=== PATIENT | female | born 1950 | race Asian ===

== ENCOUNTER 2018-05-22 15:58 | Inpatient (IN) | payer OTHER ==
[2018-05-22] MEDS ORDERED: DEXTROSE 50% 25 GM / 50ML DISP.SYRIN. IV (16:30)
[2018-05-22 16:31] LABS: POC GLUCOSE 102 mg/dL (70-99)
[2018-05-22 16:41] LABS: HEMATOCRIT 42.6 % (36.0-47.0); HEMOGLOBIN 14.4 g/dL (12.0-15.5); MEAN CORPUSCULAR HEMOGLOBIN 30 pg (25-35); MEAN CORPUSCULAR HGB CONC 34 g/dL (31-37); MEAN CORPUSCULAR VOLUME 87 fL (79-100); PLATELET COUNT 275 x10^3/uL (140-400); RED BLOOD COUNT 4.88 x10^6/uL (3.50-5.40); RED CELL DISTRIBUTION WIDTH 12.5 % (11.5-14.5); WHITE BLOOD COUNT 7.6 x10^3/uL (4.0-11.0)
[2018-05-22 16:54] LABS: MAGNESIUM 1.8 mg/dL (1.8-2.4)
[2018-05-22 16:55] LABS: ANION GAP 5 (6-14); BLOOD UREA NITROGEN 17 mg/dL (7-20); BUN/CREATININE RATIO 24 (6-20); CALCIUM 9.4 mg/dL (8.5-10.1); CARBON DIOXIDE 32 mmol/L (21-32); CHLORIDE 101 mmol/L (98-107); CREATININE 0.7 mg/dL (0.6-1.0); GLUCOSE 107 mg/dL (70-99); POTASSIUM 3.9 mmol/L (3.5-5.1); SODIUM 138 mmol/L (136-145)
[2018-05-22 16:58] LABS: ALBUMIN 4.2 g/dL (3.4-5.0); ALBUMIN/GLOBULIN RATIO 1.2 (1.0-1.7); ALK PHOS 66 U/L (46-116); ALT (SGPT) 23 U/L (14-59); AST (SGOT) 20 U/L (15-37); TOTAL BILIRUBIN 0.2 mg/dL (0.2-1.0); TOTAL PROTEIN 7.8 g/dL (6.4-8.2)
[2018-05-22 17:04] LABS: TROPONINI < 0.017 ng/mL (0.000-0.055)
[2018-05-22] MEDS ORDERED: NITROGLYCERIN SUBLINGUAL 0.4 MG BOTTLE OF 25. SL (17:30)
[2018-05-22] MEDS ORDERED: ACETAMINOPHEN 325 MG TABLET. PO (17:30)
[2018-05-22] MEDS: PANTOPRAZOLE 40 MG TABLET.DR. PO (17:55)
[2018-05-22] MEDS: metFORMIN 500 MG TABLET PO (20:35)
[2018-05-22] MEDS: ATORVASTATIN CALCIUM 20 MG TABLET PO (20:35)
[2018-05-22 20:46] LABS: POC GLUCOSE 115 mg/dL (70-99)
[2018-05-22] MEDS: MAG HYDROX/ALUMINUM HYD/SIMETH 30 ML ORAL.SUSP PO (22:35)
[2018-05-23 01:09] LABS: TROPONINI < 0.017 ng/mL (0.000-0.055)
[2018-05-23 04:46] LABS: CHOLESTEROL 208 mg/dL (0-200); HDLC 44 mg/dL (40-60); LDLC 102 mg/dL (0-100); NON-HDL CHOLESTEROL 164 mg/dL (0-129); TRIGLYCERIDES 310 mg/dL (0-150); VLDLC 62 mg/dL (0-40)
[2018-05-23 04:47] LABS: CHOLESTEROL/HDL RATIO 4.7
[2018-05-23 04:49] LABS: TROPONINI < 0.017 ng/mL (0.000-0.055)
[2018-05-23] MEDS: REGADENOSON 0.4 MG/5 ML DISP.SYRIN. IV (09:05)
[2018-05-23] MEDS: metFORMIN 500 MG TABLET PO ×2 (10:49→10:55)
[2018-05-23] MEDS: MULTIVITAMIN with MINERAL TABLET. PO (10:49)
[2018-05-23] MEDS: PANTOPRAZOLE 40 MG TABLET.DR. PO (10:49)
[2018-05-23] MEDS: CYANOCOBALAMIN (VITAMIN B-12) 1,000 MCG TABLET. PO (10:49)
[2018-05-23] MEDS: ASPIRIN 325 MG TABLET PO (10:49)
[2018-05-23] MEDS: hydroCHLOROthiazide 12.5 MG CAPSULE PO (10:49)
[2018-05-23] MEDS: LINAGLIPTIN 5 MG TABLET PO (10:49)
[2018-05-23] MEDS: LOSARTAN POTASSIUM 50 MG TABLET. PO (10:49)
[2018-05-23] MEDS: ACETAMINOPHEN 325 MG TABLET. PO (10:55)
[2018-05-23 12:03] LABS: POC GLUCOSE 131 mg/dL (70-99)
[2018-05-23 12:03] LABS: POC GLUCOSE 125 mg/dL (70-99)
== END 2018-05-23 13:58 | disposition home or self-care (01) | DRG 392 ==
LOC: 2 SOUTH 15:58
PROVIDERS: Internal Medicine
DX: K21.9 Gastro-esophageal reflux disease without esophagitis (principal); K22.4 Dyskinesia of esophagus; E78.5 Hyperlipidemia, unspecified; E11.9 Type 2 diabetes mellitus without complications; I11.9 Hypertensive heart disease without heart failure; M19.90 Unspecified osteoarthritis, unspecified site; Z88.5 Allergy status to narcotic agent; Z90.49 Acquired absence of other specified parts of digestive tract; Z98.51 Tubal ligation status; Z98.49 Cataract extraction status, unspecified eye; Z79.84 Long term (current) use of oral hypoglycemic drugs; Z79.899 Other long term (current) drug therapy
CPT/HCPCS: 36415; 71045; 78452; 80053; 80061; 82962; 83735; 84484; 85027; 93005; 93017; 93306; 96374; 96375; 96376; A9500; J2785

== ENCOUNTER 2019-03-29 21:59 | Inpatient (IN) | payer BC, MEDICARE, OTHER ==
[~2019-03-29] VITALS: Ht 152.4 cm; Wt 48.2 kg
[~2019-03-29 21:59] MED LIST: CYAN10005 PO; LOSA1TAB19 PO; METF500T16 PO; MULT-245 PO; PRAV80TA2 PO; SITA100T PO
[2019-03-29 22:19] LABS: BASO % 1 % (0-3); EOS # 0.1 x10^3/uL (0.0-0.7); EOS % 1 % (0-3); HEMATOCRIT 41.1 % (36.0-47.0); HEMOGLOBIN 13.9 g/dL (12.0-15.5); LYMPH # 4.1 x10^3/uL (1.0-4.8); LYMPH % 51 % (24-48); MEAN CORPUSCULAR HEMOGLOBIN 29 pg (25-35); MEAN CORPUSCULAR HGB CONC 34 g/dL (31-37); MEAN CORPUSCULAR VOLUME 87 fL (79-100); MONO # 0.6 x10^3/uL (0.0-1.1); MONO % 8 % (0-9); NEUT # 3.3 x10^3uL (1.8-7.7); NEUT % 40 % (31-73); PLATELET COUNT 246 x10^3/uL (140-400); RED BLOOD COUNT 4.72 x10^6/uL (3.50-5.40); RED CELL DISTRIBUTION WIDTH 12.5 % (11.5-14.5); WHITE BLOOD COUNT 8.1 x10^3/uL (4.0-11.0)
[2019-03-29 22:27] LABS: PROTHROMBIN TIME PATIENT 11.6 SEC (11.7-14.0)
[2019-03-29 22:29] LABS: CALCIUM 9.6 mg/dL (8.5-10.1); CREATININE 0.8 mg/dL (0.6-1.0); GFR 70.9; POTASSIUM 3.9 mmol/L (3.5-5.1)
[2019-03-29 22:35] LABS: ALBUMIN 4.4 g/dL (3.4-5.0); ALBUMIN/GLOBULIN RATIO 1.2 (1.0-1.7); TOTAL BILIRUBIN 0.6 mg/dL (0.2-1.0)
--- NOTE | 2019-03-29 22:44 | RAD ---
EXAM: Chest, single view. HISTORY: Chest pain. COMPARISON: None. FINDINGS: A frontal view of the chest is obtained. There is no infiltrate, pleural effusion or pneumothorax. The heart is normal in size. IMPRESSION: No acute pulmonary finding. Electronically signed by: Ebonie Chaney MD (03/29/2019 10:41 PM) [facility]
[2019-03-29] MEDS ORDERED: LIDO:MAALOX 1:1 20 ML SINGLE DOSE. SWSW ONE (23:00)
[2019-03-29] MEDS ORDERED: ASPIRIN CHEWABLE 81 MG TABLET. PO ONE (23:00)
[2019-03-30] VITALS (7 sets, daily range): BP systolic 102–147; BP diastolic 53–82
--- NOTE | 2019-03-30 00:11 | PHYS DOC ---
Past Medical History Past Medical History: GERD, Hypertension Additional Past Surgical Histo: Right arm Alcohol Use: None Drug Use: None Adult General Chief Complaint Chief Complaint: CHEST PAIN HPI HPI Patient is a 68 year old female who presents with chest pain. She describes a sensation of chest pressure and burning is been going on for several days it's worse when she lies flat or is in a certain position in bed. However then tonight she was moving a box she got much more short of breath she felt weak she was having increasing chest pressure that lasted for 30 minutes after moving a box across the room. Currently she feels a little bit better. She had a stress test last year that was negative she saw Dr. Goldberg on Friday. 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 Current Medications Current Medications Current Medications Medications (Trade) Dose Ordered Sig/Stewart Start Time Stop Time Status Last Admin Dose Admin Aspirin (Children'S Aspirin) 324 mg 1X ONCE 03/29/19 23:00 03/29/19 23:01 DC 03/29/19 22:57 324 MG Multi-Ingredient Mouthwash/Gargle (Gi Cocktail) 20 ml 1X ONCE 03/29/19 23:00 03/29/19 23:01 DC 03/29/19 22:59 20 ML Allergies Allergies Allergies Coded Allergies Type Severity Reaction Last Updated Verified codeine Allergy Intermediate 05/22/18 Yes Physical Exam Physical Exam Constitutional: Well developed, well nourished, no acute distress, non-toxic appearance. [] HENT: Normocephalic, atraumatic, bilateral external ears normal, oropharynx moist, no oral exudates, nose normal. [] Eyes: PERRLA, EOMI, conjunctiva normal, no discharge. [] Neck: Normal range of motion, no tenderness, supple, no stridor. [] Cardiovascular:Heart rate regular rhythm, no murmur [] Lungs & Thorax: Bilateral breath sounds clear to auscultation [] Abdomen: Bowel sounds normal, soft, no tenderness, no masses, no pulsatile masses. [] Skin: Warm, dry, no erythema, no rash. [] Back: No tenderness, no CVA tenderness. [] Extremities: No tenderness, no cyanosis, no clubbing, ROM intact, no edema. [] Neurologic: Alert and oriented X 3, normal motor function, normal sensory function, no focal deficits noted. [] Psychologic: Affect normal, judgement normal, mood normal. [] Current Patient Data Vital Signs Vital Signs Date Time Temp Pulse Resp B/P (MAP) Pulse Ox O2 Delivery O2 Flow Rate FiO2 03/29/19 22:44 78 18 136/62 (86) 99 Room Air 03/29/19 22:00 97.6 97.6 Lab Values Laboratory Tests Test 03/29/19 22:00 White Blood Count 8.1 x10^3/uL (4.0-11.0) Red Blood Count 4.72 x10^6/uL (3.50-5.40) Hemoglobin 13.9 g/dL (12.0-15.5) Hematocrit 41.1 % (36.0-47.0) Mean Corpuscular Volume 87 fL (79-100) Mean Corpuscular Hemoglobin 29 pg (25-35) Mean Corpuscular Hemoglobin Concent 34 g/dL (31-37) Red Cell Distribution Width 12.5 % (11.5-14.5) Platelet Count 246 x10^3/uL (140-400) Neutrophils (%) (Auto) 40 % (31-73) Lymphocytes (%) (Auto) 51 % (24-48) H Monocytes (%) (Auto) 8 % (0-9) Eosinophils (%) (Auto) 1 % (0-3) Basophils (%) (Auto) 1 % (0-3) Neutrophils # (Auto) 3.3 x10^3uL (1.8-7.7) Lymphocytes # (Auto) 4.1 x10^3/uL (1.0-4.8) Monocytes # (Auto) 0.6 x10^3/uL (0.0-1.1) Eosinophils # (Auto) 0.1 x10^3/uL (0.0-0.7) Basophils # (Auto) 0.0 x10^3/uL (0.0-0.2) Prothrombin Time 11.6 SEC (11.7-14.0) L Prothrombin Time INR 0.9 (0.8-1.1) D-Dimer (Rosario) < 0.27 ug/mlFEU Sodium Level 132 mmol/L (136-145) L Potassium Level 3.9 mmol/L (3.5-5.1) Chloride Level 93 mmol/L (98-107) L Carbon Dioxide Level 26 mmol/L (21-32) Anion Gap 13 (6-14) Blood Urea Nitrogen 23 mg/dL (7-20) H Creatinine 0.8 mg/dL (0.6-1.0) Estimated GFR (Cockcroft-Gault) 70.9 BUN/Creatinine Ratio 29 (6-20) H Glucose Level 130 mg/dL (70-99) H Calcium Level 9.6 mg/dL (8.5-10.1) Total Bilirubin 0.6 mg/dL (0.2-1.0) Aspartate Amino Transferase (AST) 17 U/L (15-37) Alanine Aminotransferase (ALT) 21 U/L (14-59) Alkaline Phosphatase 57 U/L (46-116) Troponin I Quantitative < 0.017 ng/mL (0.000-0.055) Total Protein 8.0 g/dL (6.4-8.2) Albumin 4.4 g/dL (3.4-5.0) Albumin/Globulin Ratio 1.2 (1.0-1.7) Lipase 225 U/L (73-393) Laboratory Tests 03/29/19 22:00 Laboratory Tests 03/29/19 22:00 EKG EKG []Normal sinus rhythm rate 79 no acute ischemic changes noted interpreted by me the time of encounter 1 PVC was noted. Radiology/Procedures Radiology/Procedures [] Impressions: FINDINGS: A frontal view of the chest is obtained. There is no infiltrate, pleural effusion or pneumothorax. The heart is normal in size. IMPRESSION: No acute pulmonary finding. Electronically signed by: Ebonie Guillermo MD (03/29/2019 10:41 PM) [facility] DICTATED and SIGNED BY: EBONIE GUILLERMO MD DATE: 03/29/192240 Course & Med Decision Making Course & Med Decision Making Pertinent Labs and Imaging studies reviewed. (See chart for details) []68-year-old female with chest pain. Heart score is a H1E0 a 2 are 2T0 = 5. D-dimer was negative and noncontributory PE or dissection based on her timeline. Abdominal examination was benign I discussed with Dr. Goldberg agrees with admission overnight for observation recommends cardiac consultation restart home medications. Patient and family are comfortable with the plan. Dragon Disclaimer Dragon Disclaimer This electronic medical record was generated, in whole or in part, using a voice recognition dictation system. Departure Departure Impression: Primary Impression: Chest pain Disposition: ADMITTED INPATIENT Admitting Physician: Sin Goldberg Condition: STABLE Referrals: SIN GOLDBERG MD (PCP) ESTHER GRACE MD Mar 30, 2019 00:11
[2019-03-30] MEDS ORDERED: PANT20TA2 PO (01:04)
[2019-03-30] MEDS ORDERED: GABA-585 PO (01:04)
--- NOTE | 2019-03-30 05:55 | EKG ---
[facility] [address] [place] [address] Test Date: 2019-03-29 Test Time: 22:05:06 Pat Name: MING RUSH Department: Room: Gender: F Sheep Sorter: : 1950 Requested By: ESTHER GRACE Order Number: [id number] Reading MD: Measurements Intervals [place] Rate: 79 P: 52 [place]: 134 QRS: 6 QRSD: 82 T: 30 QT: 382 QTc: 439 Interpretive Statements SINUS RHYTHM VENTRICULAR PREMATURE COMPLEX(ES) QRS(T) CONTOUR ABNORMALITY CONSIDER ANTEROLATERAL MYOCARDIAL DAMAGE CONSISTENT WITH INFERIOR INFARCT PROBABLY OLD ABNORMAL ECG RI6.01 Unconfirmed report No previous ECG available for comparison
--- NOTE | 2019-03-30 08:43 | PDOC2 ---
NEGIN ROSE [employer] 03/30/19 0843: CARDIAC CONSULT DATE OF CONSULT Date of Consult DATE: 03/30/19 TIME: 08:38 REASON FOR CONSULT Reason for Consult: Chest pain REFERRING PHYSICIAN Referring Physician: Dr. Goldberg SOURCE Source: Chart review, Patient HISTORY OF PRESENT ILLNESS HISTORY OF PRESENT ILLNESS This is a 68 yo female who presented secondary to chest/epigastric pain. Patient reports pain has been intermittent for the last week. Describes as burning sensation. Non-radiating. Occurs after eating. Feels like something is stuck in her esophagus. When she eats. Associated with shortness of breath. Seems to be better in she lays on her side. Also associated with tingling in her bilateral LE. Feels better when her stomach is empty. Saw PCP Friday and was started on PPI. Reports symptoms initially improved, but came back. No recent illness/fevers, dizziness, diaphoresis, palpitations, nausea/vomiting, LE edema, or ESCALANTE. PAST MEDICAL HISTORY Cardiovascular: HTN, Hyperlipidemia GI: GERD Endocrine: Diabetes PAST SURGICAL HISTORY Past Surgical History: Appendectomy, Tubal Ligation FAMILY HISTORY Family History: Cancer (lung ), Diabetes, High Cholestrol, Hypertension SOCIAL HISTORY Smoke: No ALCOHOL: none Drugs: None Lives: with Family CURRENT MEDICATIONS CURRENT MEDICATIONS Current Medications Medications (Trade) Dose Ordered Sig/Stewart Route PRN Reason Start Time Stop Time Status Last Admin Dose Admin Multi-Ingredient Mouthwash/Gargle (Gi Cocktail) 20 ml 1X ONCE SWSW 03/29/19 23:00 03/29/19 23:01 DC 03/29/19 22:59 Aspirin (Children'S Aspirin) 324 mg 1X ONCE PO 03/29/19 23:00 03/29/19 23:01 DC 03/29/19 22:57 ALLERGIES ALLERGIES: Coded Allergies: codeine (Verified Allergy, Intermediate, 05/22/18) liraglutide (Verified Allergy, Unknown, Nausea, 03/30/19) ROS Review of System 14 point ROS conducted with pertinent positives noted above in HPI. PHYSICAL EXAM General: Alert, Oriented X3, Cooperative, No acute distress HEENT: Atraumatic, Mucous membr. moist/pink Lungs: Clear to auscultation, Normal air movement Heart: Regular rate, Normal S1, Normal S2, No murmurs Abdomen: Soft, Other (mild epigastric tenderness ) Extremities: No edema, Normal pulses Skin: No significant lesion Neuro: Strength at 5/5 X4 ext, Sensation intact Psych/Mental Status: Mental status NL, Mood NL MUSCULOSKELETAL: No deformity VITALS VITALS Vital Signs Date Time Temp Pulse Resp B/P (MAP) Pulse Ox O2 Delivery O2 Flow Rate FiO2 03/30/19 07:40 98.1 72 16 102/65 (77) 97 Room Air 98.1 LABS Lab: Laboratory Tests Test 03/29/19 22:00 03/30/19 05:15 White Blood Count 8.1 x10^3/uL (4.0-11.0) Red Blood Count 4.72 x10^6/uL (3.50-5.40) Hemoglobin 13.9 g/dL (12.0-15.5) Hematocrit 41.1 % (36.0-47.0) Mean Corpuscular Volume 87 fL (79-100) Mean Corpuscular Hemoglobin 29 pg (25-35) Mean Corpuscular Hemoglobin Concent 34 g/dL (31-37) Red Cell Distribution Width 12.5 % (11.5-14.5) Platelet Count 246 x10^3/uL (140-400) Neutrophils (%) (Auto) 40 % (31-73) Lymphocytes (%) (Auto) 51 % (24-48) Monocytes (%) (Auto) 8 % (0-9) Eosinophils (%) (Auto) 1 % (0-3) Basophils (%) (Auto) 1 % (0-3) Neutrophils # (Auto) 3.3 x10^3uL (1.8-7.7) Lymphocytes # (Auto) 4.1 x10^3/uL (1.0-4.8) Monocytes # (Auto) 0.6 x10^3/uL (0.0-1.1) Eosinophils # (Auto) 0.1 x10^3/uL (0.0-0.7) Basophils # (Auto) 0.0 x10^3/uL (0.0-0.2) Prothrombin Time 11.6 SEC (11.7-14.0) Prothromb Time International Ratio 0.9 (0.8-1.1) D-Dimer (Rosario) < 0.27 ug/mlFEU Sodium Level 132 mmol/L (136-145) Potassium Level 3.9 mmol/L (3.5-5.1) Chloride Level 93 mmol/L (98-107) Carbon Dioxide Level 26 mmol/L (21-32) Anion Gap 13 (6-14) Blood Urea Nitrogen 23 mg/dL (7-20) Creatinine 0.8 mg/dL (0.6-1.0) Estimated GFR (Cockcroft-Gault) 70.9 BUN/Creatinine Ratio 29 (6-20) Glucose Level 130 mg/dL (70-99) Calcium Level 9.6 mg/dL (8.5-10.1) Total Bilirubin 0.6 mg/dL (0.2-1.0) Aspartate Amino Transf (AST/SGOT) 17 U/L (15-37) Alanine Aminotransferase (ALT/SGPT) 21 U/L (14-59) Alkaline Phosphatase 57 U/L (46-116) Troponin I Quantitative < 0.017 ng/mL (0.000-0.055) < 0.017 ng/mL (0.000-0.055) Total Protein 8.0 g/dL (6.4-8.2) Albumin 4.4 g/dL (3.4-5.0) Albumin/Globulin Ratio 1.2 (1.0-1.7) Lipase 225 U/L (73-393) ECHOCARDIOGRAM ECHOCARDIOGRAM <Conclusion> The left ventricle is normal size. The left ventricular systolic function is normal and the ejection fraction is within normal range. Left ventricular ejection fraction is 60-65%. There is mild concentric left ventricular hypertrophy. There is no significant aortic valvular stenosis. Doppler and Color Flow revealed no significant aortic regurgitation. Doppler and Color Flow revealed no mitral valve regurgitation noted. Doppler and Color Flow revealed mild tricuspid regurgitation. There is no evidence of significant pericardial effusion. DATE: 05/23/18 1309 ASSESSMENT/PLAN ASSESSMENT/PLAN 1. Chest/epigastric pain, atypical. AMI ruled out. Suspect GI related 2. Hypertension; controlled 3. Hyperlipidemia 4. GERD; PPI 5. DM, II Recommendations ASA, statin Echo to assess LV systolic function lipid panel D/w Dr. Goldberg. Given risk factors, with proceed with MPI to r/o ischemia. DEEPALI SAUNDERS MD 03/30/19 1146: CARDIAC CONSULT ASSESSMENT/PLAN ASSESSMENT/PLAN Pt. seen and examined. Agree with above RN [facility] note. Multiple risk factors and atypical chest. Echo wnl. Await MPI results. NEGIN ROSE APRN Mar 30, 2019 08:43 DEEPALI SAUNDERS MD Mar 30, 2019 11:46
[2019-03-30] MEDS ORDERED: DEXTROSE 50% 25 GM / 50ML DISP.SYRIN. IV PRN (10:00)
[2019-03-30 10:14] LABS: CHOLESTEROL/HDL RATIO 5.2
--- NOTE | 2019-03-30 10:22 | CARD ---
MR#: [id number] Date of Study: 03/30/2019 Ordering Physician: NEGIN ROSE, Referring Physician: FABRICIO CHUNG Tech: Solange Lincoln RDCS APPROVED REPORT EXAM: Two-dimensional and M-mode echocardiogram with Doppler and color Doppler. Other Information Quality : Good INDICATION Chest Pain 2D DIMENSIONS RVDd2.4 (2.9-3.5cm)Left Atrium(2D)3.0 (1.6-4.0cm) IVSd0.8 (0.7-1.1cm)Aortic Root(2D)2.6 (2.0-3.7cm) LVDd4.3 (3.9-5.9cm)LVOT Diameter2.0 (1.8-2.4cm) PWd1.0 (0.7-1.1cm)LVDs2.6 (2.5-4.0cm) FS (%) 40.7 %SV59.8 ml LVEF(%)60.0 (>50%) Aortic Valve AoV Peak Jose.125.9cm/sAoV VTI26.3cm AO Peak GR.6.3mmHgLVOT Peak Jose.90.9cm/s LVOT VTI 19.12cmAO Mean GR.4mmHg STEVE (VMAX)2.91fv1NQN (VTI)2.32cm2 Mitral Valve MV E Suyjncpt89.6cm/sMV DECEL QNAJ887zr MV A Sohbpgtl62.1cm/sMV PZZ470oa E/A Ratio0.6MVA (PHT)2.20cm2 TDI E/Lateral E'8.6E/Medial E'10.9 Tricuspid Valve TR P. Jhzkralg559wd/sRAP TCESLVFB6qsKh TR Peak Gr.68leIgIRUJ27pzHf Pulmonary Vein S1 Ipcuemcr75.8cm/sD2 Gdpbhjdo09.8cm/s LEFT VENTRICLE The left ventricle is normal size. There is normal left ventricular wall thickness. The left ventricu lar systolic function is normal and the ejection fraction is within normal range. The Ejection Fracti on is 55-60%. There is normal LV segmental wall motion. Transmitral Doppler flow pattern is Grade I-a bnormal relaxation pattern. RIGHT VENTRICLE The right ventricle is normal size. The right ventricular systolic function is normal. ATRIA The left atrium size is normal. The right atrium size is normal. The interatrial septum is intact wit h no evidence for an atrial septal defect or patent foramen ovale as noted on 2-D or Doppler imaging. AORTIC VALVE The aortic valve is sclerotic but opens well. Doppler and Color Flow revealed trace aortic regurgitat ion. There is no significant aortic valvular stenosis. MITRAL VALVE The mitral valve is calcified but opens well. There is no evidence of mitral valve prolapse. There is no mitral valve stenosis. Doppler and Color-flow revealed trace mitral regurgitation. TRICUSPID VALVE The tricuspid valve is normal in structure and function. Doppler and Color Flow revealed trace tricus pid regurgitation. The PA pressure was estimated at 18 mmHg. There is no tricuspid valve stenosis. PULMONIC VALVE The pulmonic valve is not well visualized. Doppler and Color Flow revealed mild pulmonic valvular reg urgitation. There is no pulmonic valvular stenosis. GREAT VESSELS The aortic root is normal in size. The ascending aorta is not well seen. The IVC is normal in size an d collapses >50% with inspiration. PERICARDIAL EFFUSION There is no evidence of significant pericardial effusion. Critical Notification Critical Value: No <Conclusion> The left ventricular systolic function is normal and the ejection fraction is within normal range. T he Ejection Fraction is 55-60%. There is normal LV segmental wall motion. Signed by : Edouard Nichole, Electronically Approved : 03/30/2019 10:21:37
--- NOTE | 2019-03-30 10:38 | PDOC ---
Provider Note Provider Note history and physical dictated # [id number] FABRICIO CHUNG MD Mar 30, 2019 10:38
[2019-03-30] MEDS ORDERED: REGADENOSON 0.4 MG/5 ML DISP.SYRIN. IV ONE (11:15)
--- NOTE | 2019-03-30 11:19 | HP ---
ADMIT DATE: 03/30/2019 LOCATION: She is in room 210. HISTORY OF PRESENT ILLNESS: The patient is a 68-year-old white female with history of diabetes mellitus, hypertension and hyperlipidemia, who actually was seen in the office the other day with some epigastric discomfort and some solid food dysphagia. She was started on a proton pump inhibitor. She apparently yesterday had some tingling in her hands and feet and some solid food dysphagia, epigastric pain, discomfort and fullness and pushed a box when her symptoms worsened and she sought help at the [facility] Emergency Room. She was subsequently admitted to the hospital. Her EKG showed no acute change and her cardiac enzymes were negative x 2 after admission. She is, therefore, admitted for further evaluation of her chest discomfort and fullness as well as some epigastric fullness and discomfort and solid food dysphagia. She denies any nausea, vomiting or black or bloody stools. ALLERGIES AND INTOLERANCES: CODEINE AND LIRAGLUTIDE. MEDICATIONS: Include aspirin 81 mg every day, atorvastatin 20 mg at bedtime, vitamin B12 at 1000 mcg daily, gabapentin 100 mg at bedtime, hydrochlorothiazide 12.5 mg every day, losartan 50 mg every day, metformin 500 mg q.i.d., multivitamin every day and Protonix 40 mg every day. PAST MEDICAL HISTORY: Past history is significant for an appendectomy and tubal ligation. She has a history of diabetes mellitus, hypertension, hyperlipidemia and gastroesophageal reflux disease. SOCIAL HISTORY: She does not drink alcohol nor does she smoke cigarettes. She is . FAMILY HISTORY: Noncontributory. REVIEW OF SYSTEMS: GENERAL: There has been no fever, chills or sweats. CARDIOVASCULAR: She had some of chest discomfort and solid food dysphagia. PULMONARY: No cough or shortness of breath. GASTROINTESTINAL: She had the solid food dysphagia, epigastric pain and fullness. ENDOCRINE: She has diabetes mellitus. SKIN: No rashes. The rest of systems reviewed are negative, except as stated in the history of present illness. PHYSICAL EXAMINATION: VITAL SIGNS: The temperature is 98.1 degrees, apical pulse regular at 72, respiratory rate 16, blood pressure 102/65 and oxygen saturation 97%. HEENT: Eyes, gaze is conjugate. Mouth, tongue is midline. NECK: There is no cervical lymphadenopathy or thyroid enlargement. HEART: Reveals an S1, S2. There is no S3 or murmur. LUNGS: Clear. ABDOMEN: Soft, nontender in the sitting position. EXTREMITIES: Lower extremities without edema. SKIN: No rashes. LABORATORY DATA: Review of her laboratory tests, white count is 8.1, hemoglobin 13.9 and platelet count was 246,000. She had 40 polys and 51 lymphocytes, with an INR of 0.9. D-dimer less than 0.27. Sodium 132, potassium 3.9, chloride 93, total CO2 is 26, the BUN is 23, creatinine 0.8 and blood sugar was 130. Liver function tests were normal. Troponin level negative x 2. Triglycerides 207, cholesterol 232, LDL was 146 and HDL was 45 with a lipase of 225. Fingerstick blood sugar was 138. EKG showed normal sinus rhythm with a left atrial abnormality and no acute change. Chest x-ray was unremarkable. She had an echocardiogram done today, which showed preserved left ventricular ejection fraction was unremarkable. ASSESSMENT: 1. Solid food dysphagia. 2. Epigastric pain and fullness. 3. Some chest discomfort. 4. Diabetes mellitus type 2. 5. Hypertension. 6. Hyperlipidemia. PLAN: The plan at this time is to consult the nutrition associate. I spoke with the nurse practitioner of nutrition associate, who recommended getting a stress test because of her coronary artery disease risk factors including diabetes mellitus, hypertension and hyperlipidemia. I will consult Dr. Peck for GI to evaluate for an EGD and possible esophageal dilatation. We will continue the Protonix. We will get a CAT scan of the abdomen and pelvis for the discomfort as mentioned in the epigastric area also. We will continue the Protonix and other current medications. FABRICIO CHUNG MD DR: SHERIF/katihe JOB#: [id number] / [id number]
[2019-03-30] MEDS: metFORMIN 500 MG TABLET PO SCH ×3 (11:30→20:29)
--- NOTE | 2019-03-30 12:17 | NUR ---
SS following for discharge planning. SS reviewed pt chart. Pt is from home with spouse and is currently on room air. No discharge needs noted at this time. SS will continue to follow for discharge planning.
--- NOTE | 2019-03-30 12:27 | PDOC2 ---
GI CONSULT Reason For Consult: EGD eval, solid food dysphagia HPI: HPI: 68 y/o female who saw her PCP, Dr. Goldberg, in the office last week for epigastric discomfort and solid food dysphagia/regurgitation x 2 weeks. Was started on PPI and dysphagia improved. Now admitted w/ chest burning and soreness wrapping around right breast. Cardiology is following w/ plans for stress test today. Has had heartburn recently but no issue with this prior to symptom onset. No n/v. Describes early satiety and probably some associated weight loss. Liquid antacid helped at home but symptoms recur. No diarrhea or constipation - usually takes fiber powder. No hematemesis, hematochezia, or melena. No previous EGD. Had a colonoscopy w/ Dr. Ontiveros (seems like at [facility]) <10 years ago. No GB, liver, pancreas, or PUD history. Occasionally takes Naproxen though mentions she has been told she probably shouldn't. PMH: PMH: HTN, HLD, DM appendectomy, tubal ligation, right wrist surgery FH: Family History: Cancer (lung), DM, Hyperlipidemia, Hypertension Social History: Smoke: No ALCOHOL: none Drugs: None ROS: GEN: Denies fevers, chills, sweats HEENT: Denies blurred vision, sore throat CV: +chest pain RESP: Denies shortness of air, cough GI: Per HPI : Denies hematuria, dysuria ENDO: +weight loss NEURO: Denies confusion, dizziness MSK: Denies weakness, joint pain/swelling SKIN: Denies jaundice, pruritus Vitals: Vitals: Vital Signs Date Time Temp Pulse Resp B/P (MAP) Pulse Ox O2 Delivery O2 Flow Rate FiO2 03/30/19 10:44 97.7 77 16 147/82 (103) 98 Room Air 97.7 Labs: Labs: Laboratory Tests Test 03/29/19 22:00 03/30/19 05:15 03/30/19 09:24 03/30/19 11:47 White Blood Count 8.1 x10^3/uL (4.0-11.0) Red Blood Count 4.72 x10^6/uL (3.50-5.40) Hemoglobin 13.9 g/dL (12.0-15.5) Hematocrit 41.1 % (36.0-47.0) Mean Corpuscular Volume 87 fL (79-100) Mean Corpuscular Hemoglobin 29 pg (25-35) Mean Corpuscular Hemoglobin Concent 34 g/dL (31-37) Red Cell Distribution Width 12.5 % (11.5-14.5) Platelet Count 246 x10^3/uL (140-400) Neutrophils (%) (Auto) 40 % (31-73) Lymphocytes (%) (Auto) 51 % (24-48) Monocytes (%) (Auto) 8 % (0-9) Eosinophils (%) (Auto) 1 % (0-3) Basophils (%) (Auto) 1 % (0-3) Neutrophils # (Auto) 3.3 x10^3uL (1.8-7.7) Lymphocytes # (Auto) 4.1 x10^3/uL (1.0-4.8) Monocytes # (Auto) 0.6 x10^3/uL (0.0-1.1) Eosinophils # (Auto) 0.1 x10^3/uL (0.0-0.7) Basophils # (Auto) 0.0 x10^3/uL (0.0-0.2) Prothrombin Time 11.6 SEC (11.7-14.0) Prothromb Time International Ratio 0.9 (0.8-1.1) D-Dimer (Rosario) < 0.27 ug/mlFEU Sodium Level 132 mmol/L (136-145) Potassium Level 3.9 mmol/L (3.5-5.1) Chloride Level 93 mmol/L (98-107) Carbon Dioxide Level 26 mmol/L (21-32) Anion Gap 13 (6-14) Blood Urea Nitrogen 23 mg/dL (7-20) Creatinine 0.8 mg/dL (0.6-1.0) Estimated GFR (Cockcroft-Gault) 70.9 BUN/Creatinine Ratio 29 (6-20) Glucose Level 130 mg/dL (70-99) Calcium Level 9.6 mg/dL (8.5-10.1) Total Bilirubin 0.6 mg/dL (0.2-1.0) Aspartate Amino Transf (AST/SGOT) 17 U/L (15-37) Alanine Aminotransferase (ALT/SGPT) 21 U/L (14-59) Alkaline Phosphatase 57 U/L (46-116) Troponin I Quantitative < 0.017 ng/mL (0.000-0.055) < 0.017 ng/mL (0.000-0.055) Total Protein 8.0 g/dL (6.4-8.2) Albumin 4.4 g/dL (3.4-5.0) Albumin/Globulin Ratio 1.2 (1.0-1.7) Lipase 225 U/L (73-393) Triglycerides Level 207 mg/dL (0-150) Cholesterol Level 232 mg/dL (0-200) LDL Cholesterol, Calculated 146 mg/dL (0-100) VLDL Cholesterol, Calculated 41 mg/dL (0-40) Non-HDL Cholesterol Calculated 187 mg/dL (0-129) HDL Cholesterol 45 mg/dL (40-60) Cholesterol/HDL Ratio 5.2 Glucose (Fingerstick) 138 mg/dL (70-99) 153 mg/dL (70-99) Allergies: Coded Allergies: codeine (Verified Allergy, Intermediate, 05/22/18) liraglutide (Verified Allergy, Unknown, Nausea, 03/30/19) Medications: Current Medications Medications (Trade) Dose Ordered Sig/Stewart Route PRN Reason Start Time Stop Time Status Last Admin Dose Admin Multi-Ingredient Mouthwash/Gargle (Gi Cocktail) 20 ml 1X ONCE SWSW 03/29/19 23:00 03/29/19 23:01 DC 03/29/19 22:59 Aspirin (Children'S Aspirin) 324 mg 1X ONCE PO 03/29/19 23:00 03/29/19 23:01 DC 03/29/19 22:57 Imaging: Imaging: CXR IMPRESSION: No acute pulmonary finding. CT A/P pending PE: GEN: NAD HEENT: Atraumatic, PERRL LUNGS: CTAB HEART: RRR ABD: NABS, S/ND/NT EXTREMITY: No edema SKIN: No rashes, no jaundice NEURO/PSYCH: A & O 3 A/P: A/P: Chest pain - seems atypical Heartburn, dysphagia/regurg, early satiety, weight loss CRC screen - reports colonoscopy <10 years ago H/o NSAID use -- Agree w/ PPI. Await MPI. If normal, could proceed w/ EGD tomorrow morning. AUSTEN MCKEON Mar 30, 2019 12:27
--- NOTE | 2019-03-30 14:03 | RAD ---
Examination: CT of the abdomen pelvis without contrast HISTORY: History of epigastric fullness, pain COMPARISON: 11/27/2011 TECHNIQUE: Axial CT images of the abdomen pelvis were performed without contrast. Coronal and sagittal reformats are performed Exposure: One or more of the following individualized dose reduction techniques were utilized for this examination: 1. Automated exposure control 2. Adjustment of the mA and/or kV according to patient size 3. Use of iterative reconstruction technique FINDINGS: The bibasilar lungs are clear. No evidence of free air identified in the abdomen. Partially visualized coronary artery calcifications. The evaluation of the solid organs is limited due to lack of IV contrast. The evaluation of bowel is limited due to lack of oral contrast. The visualized noncontrasted liver, spleen, adrenals grossly appears unremarkable. The gallbladder is mildly distended. The stomach is mildly distended. The visualized pancreas grossly appears unremarkable. The small bowel is nondilated. The appendix is not identified likely prior surgical changes. Feces and gas noted in the colon. No evidence of intrarenal collecting system calculus or hydronephrosis identified. There is a cystic structure identified in the left kidney measuring 1.5 cm could be a cyst or cystic lesion. Severe aortic atherosclerosis. Moderate degenerative changes thoracic lumbar spine. IMPRESSION: 1. No acute intra-abdominal findings. 2. 1.5 cm cystic structure identified in the left kidney likely a cyst. Electronically signed by: Lorenzo Quinones MD (03/30/2019 2:01 PM) [place] [id number]
[2019-03-30] MEDS: CYANOCOBALAMIN (VITAMIN B-12) 1,000 MCG TABLET. PO SCH (14:22)
[2019-03-30] MEDS: ASPIRIN ENTERIC COATED 81 MG TABLET.DR. PO SCH (14:22)
[2019-03-30] MEDS: PANTOPRAZOLE 40 MG TABLET.DR. PO SCH (14:22)
[2019-03-30] MEDS: MULTIVITAMIN with MINERAL TABLET. PO SCH (14:22)
[2019-03-30] MEDS: LOSARTAN POTASSIUM 50 MG TABLET. PO SCH (14:25)
[2019-03-30] MEDS: hydroCHLOROthiazide 12.5 MG CAPSULE PO SCH (14:26)
--- NOTE | 2019-03-30 14:28 | RAD ---
MR#: [id number] Date of Study: 03/30/2019 Ordering Physician: NEGIN ROSE, Referring Physician: HAWA SAAVEDRA Tech: SALMA Salmon APPROVED REPORT Test Type: Pharmacological Stress Nurse/Tech: Carlie Burton RN Test Indications: chest pain Cardiac History: HTN, DM Medications: See Electronic Medical Record Medical History: See Electronic Medical Record Resting ECG: SR Resting Heart Rate: 71 bpm Resting Blood Pressure: 133/67mmHg Pretest Chest Pain: None Nurse/Tech Notes lungs CTA, S1S2 Consent: The procedure was explained to the patient in lay terms. Informed consent was witnessed. Willian eout was entered into [employer]. History and Stress Test performed by Carlie Burton RN Pharm. Details Pharmacologic stress testing was performed using 0.4mg per 5ml of regadenoson given intravenously ove r 7-10 seconds. Stress Symptoms No chest pain or symptoms. POST EXERCISE Reason for Termination: Infusion complete Target HR: 110 Max Blood Pressure: 143/71mmHg Blood Pressure response to exercise: Normal blood pressure response during stress. Heart Rate response to exercise: normal response Chest Pain: No. Arrhythmia: Yes. PVC ST Change: No. INTERPRETATION Stress EKG Conclusion: No evidence of stress induced EKG changes. Imaging Protocol IMAGE PROTOCOL: Rest Tc-99m/stress Tc-99m 1 day Rest: Stress: Viability: Radiopharm.Tc99m [id number] Sestamibi Dose10.5mCi 33mCi Duration 15min. 10min. Img Date 03/30/2019 03/30/2019 Inj-Img [id number]. 60min. Rest Admin Site:IV - Right AntecubitalAdministrator:RT Darrel (R)(N) Stress Admin Site: IV - Right AntecubitalAdministrator: SALMA Salmon STRESS DATA End Diast. Vol.31.0mlAv. Heart Rate74.0bpm End Syst. Vol.2.0mlCO Index BSA0.0L/min Myocardial Mass77.0gEject. Jhwstbwx27.0% Stress Rates Pk. Fill Rate4.10EDV/secLVtime Pk. Fill 198.16msec Pk. Empty Rate6.25ESV/secLVtime Pk. Sondx546.12msec /3 Pk. Fill1.67EDV/sec Stress Scores Regional WT0.00Summed WT0.00 Regional WM0.00Summed WM0.00 The rest and stress images show normal perfusion, normal contraction and thickening. LV Perf. Quant 17 Seg. SSS0.00 17 Seg. SRS0.00 17 Seg. SDS0.00 Stress Defect Extent (% LAD)0.00Rest Defect Extent (% LAD)0.00Rev. Defect Extent (% LAD)0.00 Stress Defect Extent (% LCX) 0.00Rest Defect Extent (% LCX)0.00Rev. Defect Extent (% LCX)0.00 Stress Defect Extent (% RCA)0.00Rest Defect Extent (% RCA)0.00Rev. Defect Extent (% RCA)0.00 Stress Defect Extent (% CECILIA)0.00Rest Defect Extent (% CECILIA)0.00Rev. Defect Extent (% CECILIA)0.00 Other Information Quality:Good Risk Assessment: Low Risk Conclusion 1. No evidence of EKG changes with stress testing. 2. Normal perfusion at stress/rest. 3. Low risk study. 4. EF > 60%. Signed by : Edouard Nichole, Electronically Approved : 03/30/2019 14:28:10
[2019-03-30] MEDS ORDERED: GABAPENTIN 100 MG CAPSULE. PO SCH (21:00)
[2019-03-30] MEDS ORDERED: ATORVASTATIN CALCIUM 20 MG TABLET PO SCH (21:00)
[2019-03-31 02:50] VITALS: BP 133/76
[2019-03-31] MEDS ORDERED: IV RINGERS,LACTATED 1000ML 1,000 ML IV SCH (07:00)
[2019-03-31] MEDS: metFORMIN 500 MG TABLET PO SCH ×3 (07:30→17:18)
[2019-03-31 07:40] VITALS: BP 113/77
[2019-03-31] MEDS ORDERED: NON FORMULARY ITEM (Losartan/Hydrochlorothiazide (Losartan-Hctz 50-12.5 Mg Tab) 1 TAB) PO SCH (09:00)
[2019-03-31] MEDS ORDERED: LIDOCAINE 2% PF 5 ML VIAL. ONE (09:52)
[2019-03-31] MEDS ORDERED: PROPOFOL 40 ML IV ONE (09:52)
--- NOTE | 2019-03-31 10:50 | PDOC4 ---
PROCEDURE Procedure EGD/biopsies/St dilation Indication: NCCP, dysphagia Meds: per anesthesia Findings: E--Less than LA Grade A esophagitis at GEJ. Mild Shatzki's ring, passable with scope. G--Mild diffuse antral erythema, biopsied. D--Normal to second portion. -Dilated w/o resistance with 52F St; no blood on dilator after w/drawal. Lynnette. well. IMP: GERD Shatzki's ring, dilated Antral erythema REC: Continue PPI. Await biopsies. F/u with me in the office in 3-4 weeks. OK to dismiss; discussed with Dr. Goldberg. FABRICIO FORD MD Mar 31, 2019 10:50
[2019-03-31] MEDS: CYANOCOBALAMIN (VITAMIN B-12) 1,000 MCG TABLET. PO SCH (12:17)
[2019-03-31] MEDS: PANTOPRAZOLE 40 MG TABLET.DR. PO SCH (12:17)
[2019-03-31] MEDS: hydroCHLOROthiazide 12.5 MG CAPSULE PO SCH (12:17)
[2019-03-31] MEDS: MULTIVITAMIN with MINERAL TABLET. PO SCH (12:18)
[2019-03-31] MEDS: LOSARTAN POTASSIUM 50 MG TABLET. PO SCH (12:18)
[2019-03-31] MEDS: ASPIRIN ENTERIC COATED 81 MG TABLET.DR. PO SCH (12:18)
[2019-03-31 14:45] VITALS: BP 110/78
--- NOTE | 2019-03-31 17:00 | PDOC ---
PROGRESS NOTES Subjective Subjective feels well. MPI stress test and echo were normal. has PVCs this evening walking around. asymptomatic. magnesium 1.[address] scan of abdomen and pelvis was negative. EGD showed antral gastritis and had dilatation of Schatzki ring. lab reviewed. ate food after EGD without dysphagia. Objective Objective Vital Signs Date Time Temp Pulse Resp B/P (MAP) Pulse Ox O2 Delivery O2 Flow Rate FiO2 03/31/19 14:45 97.9 80 18 110/78 (89) 98 Room Air 97.9 03/31/19 10:45 2 l Intake and Output 03/31/19 07:00 Intake Total 200 ml Output Total 1100 ml Balance -900 ml Intake Oral 200 ml Output Urine Total 1100 ml Physical Exam Abdomen: Soft Heart: Regular rate, Normal S1, Normal S2 Extremities: No edema General: Alert HEENT: Atraumatic Lungs: Clear to auscultation Neuro: Normal speech Psych/Mental Status: Mental status NL Skin: No rashes Assessment Assessment 1. Solid food dysphagia. schatzki ring dilated 2. Epigastric pain and fullness. ct scan abdomen and pelvis neg. symptoms resolved 3. PVCs asymptomatic 4. Diabetes mellitus type 2. 5. Hypertension. 6. Hyperlipidemia. Plan Plan of Care continue protonix dismiss today if okay with dr. Kidd Comment Review of Relevant I have reviewed the following items toño (where applicable) has been applied. Labs Laboratory Tests Test 03/29/19 22:00 03/30/19 05:15 03/30/19 09:24 03/30/19 11:47 White Blood Count 8.1 x10^3/uL (4.0-11.0) Red Blood Count 4.72 x10^6/uL (3.50-5.40) Hemoglobin 13.9 g/dL (12.0-15.5) Hematocrit 41.1 % (36.0-47.0) Mean Corpuscular Volume 87 fL (79-100) Mean Corpuscular Hemoglobin 29 pg (25-35) Mean Corpuscular Hemoglobin Concent 34 g/dL (31-37) Red Cell Distribution Width 12.5 % (11.5-14.5) Platelet Count 246 x10^3/uL (140-400) Neutrophils (%) (Auto) 40 % (31-73) Lymphocytes (%) (Auto) 51 % (24-48) Monocytes (%) (Auto) 8 % (0-9) Eosinophils (%) (Auto) 1 % (0-3) Basophils (%) (Auto) 1 % (0-3) Neutrophils # (Auto) 3.3 x10^3uL (1.8-7.7) Lymphocytes # (Auto) 4.1 x10^3/uL (1.0-4.8) Monocytes # (Auto) 0.6 x10^3/uL (0.0-1.1) Eosinophils # (Auto) 0.1 x10^3/uL (0.0-0.7) Basophils # (Auto) 0.0 x10^3/uL (0.0-0.2) Prothrombin Time 11.6 SEC (11.7-14.0) Prothromb Time International Ratio 0.9 (0.8-1.1) D-Dimer (Rosario) < 0.27 ug/mlFEU Sodium Level 132 mmol/L (136-145) Potassium Level 3.9 mmol/L (3.5-5.1) Chloride Level 93 mmol/L (98-107) Carbon Dioxide Level 26 mmol/L (21-32) Anion Gap 13 (6-14) Blood Urea Nitrogen 23 mg/dL (7-20) Creatinine 0.8 mg/dL (0.6-1.0) Estimated GFR (Cockcroft-Gault) 70.9 BUN/Creatinine Ratio 29 (6-20) Glucose Level 130 mg/dL (70-99) Calcium Level 9.6 mg/dL (8.5-10.1) Total Bilirubin 0.6 mg/dL (0.2-1.0) Aspartate Amino Transf (AST/SGOT) 17 U/L (15-37) Alanine Aminotransferase (ALT/SGPT) 21 U/L (14-59) Alkaline Phosphatase 57 U/L (46-116) Troponin I Quantitative < 0.017 ng/mL (0.000-0.055) < 0.017 ng/mL (0.000-0.055) Total Protein 8.0 g/dL (6.4-8.2) Albumin 4.4 g/dL (3.4-5.0) Albumin/Globulin Ratio 1.2 (1.0-1.7) Lipase 225 U/L (73-393) Triglycerides Level 207 mg/dL (0-150) Cholesterol Level 232 mg/dL (0-200) LDL Cholesterol, Calculated 146 mg/dL (0-100) VLDL Cholesterol, Calculated 41 mg/dL (0-40) Non-HDL Cholesterol Calculated 187 mg/dL (0-129) HDL Cholesterol 45 mg/dL (40-60) Cholesterol/HDL Ratio 5.2 Glucose (Fingerstick) 138 mg/dL (70-99) 153 mg/dL (70-99) Test 03/30/19 20:27 03/31/19 07:59 03/31/19 11:52 03/31/19 12:15 Glucose (Fingerstick) 180 mg/dL (70-99) 126 mg/dL (70-99) 110 mg/dL (70-99) Magnesium Level 1.8 mg/dL (1.8-2.4) Laboratory Tests Test 03/30/19 20:27 03/31/19 07:59 03/31/19 11:52 03/31/19 12:15 Glucose (Fingerstick) 180 mg/dL (70-99) 126 mg/dL (70-99) 110 mg/dL (70-99) Magnesium Level 1.8 mg/dL (1.8-2.4) Medications Current Medications Multi-Ingredient Mouthwash/Gargle (Gi Cocktail) 20 ml 1X ONCE SWSW Last administered on 03/29/19at 22:59; Start 03/29/19 at 23:00; Stop 03/29/19 at 23:01; Status DC Aspirin (Children'S Aspirin) 324 mg 1X ONCE PO Last administered on 03/29/19at 22:57; Start 03/29/19 at 23:00; Stop 03/29/19 at 23:01; Status DC Non-Formulary Medication (Losartan/ Hydrochlorothiazide (Losartan-Hctz 50-12.5 Mg Tab)) 1 tab DAILY PO ; Start 03/31/19 at 09:00; Status UNV Pantoprazole Sodium (Protonix) 40 mg DAILYAC PO Last administered on 03/31/19at 12:17; Start 03/30/19 at 10:00 Atorvastatin Calcium (Lipitor) 20 mg QHS PO Last administered on 03/30/19at 20:28; Start 03/30/19 at 21:00 Losartan Potassium (Cozaar) 50 mg DAILY PO Last administered on 03/31/19 12:18; Start 03/30/19 at 10:00 Hydrochlorothiazide (Microzide) 12.5 mg DAILY PO Last administered on 03/31/19 12:17; Start 03/30/19 at 10:00 Aspirin (Ecotrin) 81 mg DAILYWBKFT PO Last administered on 03/31/19 12:18; Start 03/30/19 at 10:00 Cyanocobalamin (Vitamin B-12) 1,000 mcg DAILY PO Last administered on 03/31/19 12:17; Start 03/30/19 at 11:00 Gabapentin (Neurontin) 100 mg QHS PO Last administered on 03/30/19 20:29; Start 03/30/19 at 21:00 Metformin HCl (Glucophage) 500 mg QIDACHS PO Last administered on 03/31/19 12:17; Start 03/30/19 at 11:30 Multivitamins (Thera M Plus) 1 tab DAILY PO Last administered on 03/31/19 12:18; Start 03/30/19 at 11:00 Dextrose (Dextrose 50%-Water Syringe) 12.5 gm PRN Q15MIN PRN IV SEE COMMENTS; Start 03/30/19 at 10:00 Regadenoson (Lexiscan) 0.4 mg 1X ONCE IV Last administered on 03/30/19at 12:44; Start 03/30/19 at 11:15; Stop 03/30/19 at 11:16; Status DC Ringer's Solution 1,000 ml @ 50 mls/hr Q20H IV Last administered on 03/31/19at 09:38; Start 03/31/19 at 07:00; Stop 03/31/19 at 18:59 Propofol 40 ml @ As Directed STK-MED ONCE IV ; Start 03/31/19 at 09:52; Stop 03/31/19 at 09:53; Status DC Lidocaine HCl (Lidocaine Pf 2% Vial) 5 ml STK-MED ONCE .ROUTE ; Start 03/31/19 at 09:52; Stop 03/31/19 at 09:53; Status DC Active Scripts Active Reported Protonix (Pantoprazole Sodium) 20 Mg Tablet. 40 Mg PO DAILY Gabapentin (Gabapentin) 100 Mg Capsule 100 Mg PO QHS Metformin Hcl 500 Mg Tablet 500 Mg PO QID Multi Vitamin Daily (Multivitamin) 1 Each Tablet 1 Each PO DAILY Vitamin B-12 (Cyanocobalamin (Vitamin B-12)) 1,000 Mcg Tablet 1,000 Mcg PO DAILY Pravastatin Sodium 80 Mg Tablet 80 Mg PO QHS Losartan-Hctz 50-12.5 Mg Tab (Losartan/Hydrochlorothiazide) 1 Each Tablet 1 Tab PO DAILY Vitals/I & O Vital Sign - Last 24 Hours 03/30/19 03/30/19 03/30/19 03/31/19 19:10 19:12 22:30 02:50 Temp 98.2 97.7 97.6 98.2 97.7 97.6 Pulse 71 76 68 Resp 18 18 18 B/P (MAP) 105/61 (76) 115/60 (78) 133/76 (95) Pulse Ox 96 97 97 O2 Delivery Room Air Room Air Room Air Room Air 03/31/19 03/31/19 03/31/19 03/31/19 07:40 08:00 09:36 10:45 Temp 97.7 97.5 97.9 97.7 97.5 97.9 Pulse 85 68 65 Resp 20 20 18 B/P (MAP) 113/77 (89) 138/66 Pulse Ox 97 97 99 O2 Delivery Room Air Room Air Room Air O2 Flow Rate 2 03/31/19 03/31/19 03/31/19 11:00 12:18 14:45 Temp 97.9 97.9 Pulse 64 89 80 Resp 18 18 B/P (MAP) 132/63 132/80 110/78 (89) Pulse Ox 95 98 O2 Delivery Room Air Room Air Intake and Output 03/30/19 03/30/19 03/31/19 15:00 23:00 07:00 Intake Total 200 ml Output Total 800 ml 300 ml Balance -800 ml -100 ml Nutrition Consultation Dietary Evaluation: Recommendations by RD: Increase Calorie Intake, Protein supplementation Comments: REC cardiac/ADA diet REC glucerna w/dinner meals Expected Outcomes/Goals: PO intake to meet >75% est needs Pt to have additional diet education questions answered prior to discharge, as able Malnutrition Findings: Food and Nutrition Intake (Mod: <75% est energy req 7days Weight Status: Appropriate FABRICIO CHUNG MD Mar 31, 2019 17:00
[2019-03-31] MEDS ORDERED: ATOR20TA58 PO (17:04)
--- NOTE | 2019-03-31 17:05 | DISCH ---
DISCHARGE INSTRUCTIONS Condition on Discharge Condition on Discharge: Stable Activity After Discharge Activity Instructions for Disc: Resume previous activity Diet after Discharge Diet after Discharge: Diabetic No Calorie Level Contacting the [facility] after DC Call your doctor for: If your condition worsens Follow-Up Follow up with: dr. chung next week Follow Up With: dr. wing in 3 weeks FABRICIO CHUNG MD Mar 31, 2019 17:05
--- NOTE | 2019-03-31 17:09 | PDOC ---
Provider Note Provider Note discharge summary dictated # [id number] FABRICIO CHUNG MD Mar 31, 2019 17:09
[2019-03-31] MEDS ORDERED: POTASSIUM CHLORIDE 10 MEQ TABLET.ER. PO ONE (17:30)
--- NOTE | 2019-03-31 18:32 | NUR ---
Discharge instructions reviewed with patient, verbalizes understanding. Follow ups and prescriptions given.
--- NOTE | 2019-04-01 04:00 | DS ---
DATE OF DISCHARGE: 03/31/2019 CONSULTANTS: Dr. Peck and Dr. Nichole FINAL DIAGNOSES: 1. Oropharyngeal dysphagia secondary to a Schatzki ring that was dilated during an EGD. 2. Asymptomatic premature contractions. 3. Diabetes mellitus type 2. 4. Hypertension. 5. Hyperlipidemia. 6. Antral gastritis. HOSPITAL COURSE: The patient is a 68-year-old female with history of diabetes mellitus type 2, hypertension, hyperlipidemia, seen in the office yesterday for epigastric discomfort and some solid food dysphagia, started on a proton pump inhibitor. She had some discomfort and fullness also in her epigastric area when she pushed a box. She sought help at the [facility] Emergency Room. EKG showed no acute change in sinus rhythm. Cardiac enzymes after admission were negative x 2. She was admitted to the hospital for further evaluation and treatment. Continue to have solid food dysphagia. Denied any nausea, vomiting, black or bloody stools. The patient was seen by Dr. Nichole for Cardiology and Dr. Peck for GI. Cardiac enzymes were negative for myocardial infarction. Echocardiogram showed a preserved left ventricular ejection fraction and she passed a myocardial perfusion imaging stress test. CAT scan of the abdomen and pelvis was unremarkable except for a benign renal cyst and she also had an EGD done earlier today, which showed antral gastritis with gastric biopsies and had a dilatation of a Schatzki ring. Subsequent to the EGD, she was able to swallow solid foods without any dysphagia and felt fine. She did have some asymptomatic premature ventricular contractions noted. Potassium is 3.9. Her magnesium was 1.8. 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 She will be dismissed on atorvastatin 20 mg at bedtime, vitamin B12 1000 mcg every day, gabapentin 100 mg at bedtime, losartan 50 mg and hydrochlorothiazide 12.5 mg every day, metformin 500 mg q.i.d., multiple vitamin once a day and she also takes Protonix 40 mg every day and was started on potassium chloride 10 mEq every day also. She will make an appointment to see Dr. Goldberg in the office in 1 week and follow up with Dr. Peck in 3 weeks. FABRICIO GOLDBERG MD DR: SHERIF/kathie JOB#: [id number] / [id number]
[2019-04-01] MEDS ORDERED: POTASSIUM CHLORIDE 10 MEQ TABLET.ER. PO SCH (08:00)
--- NOTE | 2019-04-01 16:07 | PATHOLOGY ---
[facility] Accession Number: [id number] . 01 Material submitted: . stomach - ANTRAL BIOPSY . 01 Clinical history: . Abdominal pain . 02 Diagnosis: Gastric biopsies, antrum: - Chronic gastritis, mild to moderate, with focal intestinal metaplasia. LB/04/01/2019 . 02 Comment: Sections of the gastric antral biopsy show congestion and mild to moderate chronic inflammation with focal intestinal metaplasia. Properly controlled immunoperoxidase stain for Helicobacter is negative for Helicobacter organisms. There is no dysplasia or evidence of malignancy. (JPM/db; 04/01/2019) . Special stain performed: Immunoperoxidase stain for Helicobacter on A1 . 02 Electronically signed: . Jadon Santos MD, Pathologist NPI- [id number] . 01 Gross description: . The specimen is received in formalin, labeled "Pritesh, Happi, antral BX" and consists of 2 fragments of gonzalez tissue measuring 0.4 x 0.3 cm and 0.4 x 0.2 cm which are entirely submitted in A1. (SDY; 03/31/2019) SYU/SYU . 02 Pathologist provided ICD-10: K29.50 . 02 CPT . 255679, [id number] Specimen Comment: A courtesy copy of this report has been sent to Specimen Comment: [phone], , . Specimen Comment: Report sent to ,DR CHUNG / DR GRACE Performed at: 01 [facility] [address], [place], [place] [id number] MD Bertrand Gallagher MD Phone: [phone] Performed at: 02 [facility] [address], [place] [id number] MD Jadon Santos MD Phone: [phone]
== END 2019-03-31 18:25 | disposition home or self-care (01) | DRG 392 ==
LOC: ER 21:59 → 2 NORTH 23:34
PROVIDERS: ADMIT Internal Medicine; ATTEND Internal Medicine
PROC: 0DB68ZX Excision of Stomach, Via Natural or Artificial Opening Endoscopic, Diagnostic (ICD-10-PCS; principal; 2019-03-31 10:30)
PROC: 0D758ZZ Dilation of Esophagus, Via Natural or Artificial Opening Endoscopic (ICD-10-PCS; 2019-03-31 10:30)
DX: K22.2 Esophageal obstruction (principal); I10 Essential (primary) hypertension; E78.5 Hyperlipidemia, unspecified; E11.9 Type 2 diabetes mellitus without complications; K21.0 Gastro-esophageal reflux disease with esophagitis; I49.3 Ventricular premature depolarization; R13.12 Dysphagia, oropharyngeal phase; K29.70 Gastritis, unspecified, without bleeding; N28.1 Cyst of kidney, acquired; Z88.5 Allergy status to narcotic agent; Z83.3 Family history of diabetes mellitus; Z82.49 Family history of ischemic heart disease and other diseases of the circulatory system; Z79.899 Other long term (current) drug therapy; Z79.84 Long term (current) use of oral hypoglycemic drugs; Z80.1 Family history of malignant neoplasm of trachea, bronchus and lung
CPT/HCPCS: 36415; 43239; 43450; 71045; 74176; 78452; 80053; 80061; 82962; 83690; 83735; 84484; 85025; 85379; 85610; 88305; 88342; 93005; 93017; 93306; 96374; A9500; J2001; J2704; J2785; J7120; 99285-25

== ENCOUNTER → 2019-06-14 | Outpatient (CLI) | payer BC ==
[~2019-06-14] MED LIST changes: +ATOR20TA58 PO; +CYAN-25 PO; -CYAN10005 PO; +GABA-585 PO; +PANT20TA2 PO
[2019-06-14 16:48] LABS: BASO # 0.1 x10^3/uL (0.0-0.2); BASO % 1 % (0-3); EOS # 0.1 x10^3/uL (0.0-0.7); EOS % 1 % (0-3); HEMATOCRIT 39.2 % (36.0-47.0); HEMOGLOBIN 12.9 g/dL (12.0-15.5); LYMPH # 2.6 x10^3/uL (1.0-4.8); LYMPH % 46 % (24-48); MEAN CORPUSCULAR HEMOGLOBIN 29 pg (25-35); MEAN CORPUSCULAR HGB CONC 33 g/dL (31-37); MEAN CORPUSCULAR VOLUME 89 fL (79-100); MONO # 0.5 x10^3/uL (0.0-1.1); MONO % 8 % (0-9); NEUT # 2.5 x10^3/uL (1.8-7.7); NEUT % 44 % (31-73); PLATELET COUNT 232 x10^3/uL (140-400); RED BLOOD COUNT 4.41 x10^6/uL (3.50-5.40); RED CELL DISTRIBUTION WIDTH 13.3 % (11.5-14.5); WHITE BLOOD COUNT 5.8 x10^3/uL (4.0-11.0)
[2019-06-14 17:09] LABS: ALBUMIN 3.9 g/dL (3.4-5.0); ALBUMIN/GLOBULIN RATIO 1.1 (1.0-1.7); CALCIUM 8.7 mg/dL (8.5-10.1); CREATININE 0.7 mg/dL (0.6-1.0); GFR 82.7; POTASSIUM 3.9 mmol/L (3.5-5.1); TOTAL BILIRUBIN 0.4 mg/dL (0.2-1.0); TOTAL PROTEIN 7.3 g/dL (6.4-8.2)
== END | disposition home or self-care (01) ==
LOC: SURGPAT 14:36
PROVIDERS: ATTEND Obstetrics & Gynecology
DX: Z01.818 Encounter for other preprocedural examination (principal); I10 Essential (primary) hypertension; E11.9 Type 2 diabetes mellitus without complications; Z88.5 Allergy status to narcotic agent
CPT/HCPCS: 36415; 80053; 85025

== ENCOUNTER 2019-06-23 06:04 | Observation (INO) | payer BC ==
[~2019-06-23] VITALS: Ht 172.7 cm; Wt 47.5 kg
[2019-06-23] VITALS (9 sets, daily range): BP systolic 131–151; BP diastolic 70–86
[2019-06-23] MEDS ORDERED: LIDOCAINE 2% PF 5 ML VIAL. ONE (06:44)
[2019-06-23] MEDS ORDERED: PROPOFOL 20 ML IV ONE (06:44)
[2019-06-23] MEDS ORDERED: DEXAMETHASONE SOD PHOS 4 MG/ML VIAL ONE (06:44)
[2019-06-23] MEDS ORDERED: ONDANSETRON PF 4 MG/2 ML VIAL. ONE (06:44)
[2019-06-23] MEDS ORDERED: ROCURONIUM 50 MG/5 ML VIAL. ONE (06:44)
[2019-06-23] MEDS ORDERED: fentaNYL PF VIAL 100 MCG/2 ML VIAL ONE ×3 (06:45→11:09)
[2019-06-23] MEDS ORDERED: IV RINGERS,LACTATED 1000ML 1,000 ML IV SCH (07:00)
[2019-06-23] MEDS ORDERED: ceFAZolin 2GM PREMIX 2 GM/50 ML BAG IV ONE (07:00)
[2019-06-23] MEDS ORDERED: ONDANSETRON PF 4 MG/2 ML VIAL. IV PRN ×2 (07:00→11:00)
[2019-06-23] MEDS ORDERED: PROCHLORPERAZINE 10 MG/2 ML VIAL. IV PRN (07:00)
[2019-06-23] MEDS ORDERED: fentaNYL PF VIAL 100 MCG/2 ML VIAL IV PRN ×2 (07:00)
[2019-06-23] MEDS ORDERED: INDIGOTINDISULFONATE SODIUM 40 MG/5 ML AMPUL. ONE (07:08)
[2019-06-23] MEDS ORDERED: ESTROGENS, CONJ VAGINAL CREAM 30GM TUBE. ONE (07:08)
[2019-06-23] MEDS ORDERED: 0.9 % SODIUM CHLORIDE 20 ML VIAL. IJ ONE (07:09)
[2019-06-23] MEDS ORDERED: INSULIN LISPRO 100 UNIT/ML 3ML VIAL for OP,RR ONLY. SQ PRN (07:30)
[2019-06-23] MEDS: BUPIVACAINE-EPI 0.25%-1:200000 MPF 30 ML VIAL. INJ ONE ×2 (08:11→08:30)
[2019-06-23] MEDS ORDERED: GLYCOPYRROLATE 1 MG/5 ML VIAL. ONE (08:20)
[2019-06-23] MEDS ORDERED: NEOSTIGMINE METHYLSULFATE 5 MG/5 ML SYRINGE. ONE (08:23)
[2019-06-23] MEDS ORDERED: BUPIVACAINE-EPI 0.25%-1:200000 MPF 30 ML VIAL. INJ ONE (08:30)
[2019-06-23] MEDS ORDERED: SEVOFLURANE > 120 MINUTES. IH ONE (09:23)
--- NOTE | 2019-06-23 10:59 | PDOC ---
BRIEF OPERATIVE NOTE Date: Jun 23, 2019 Pre-Op Diagnosis pelvic organ prolapse Post-Op Diagnosis same Procedure Performed LAVH/BSO/anterior & posterior repairs/perineoplasty/cystoscopy Surgeon Dr. Karen Valderrama Shipper Receiver [employer] Anesthesiologist Dr. Kohli Anesthesia Type: General Blood Loss 25cc IV Fluid 1L Urine Output 500cc clear via hines Specimens Obtained cervix, uterus, bilateral tubes and ovaries, vaginal mucosa Findings 2-3 degree uterine prolapse with cystocele, 2 degree rectocele Complications none Operative Note [id number] KAREN VALDERRAMA MD Jun 23, 2019 10:59
[2019-06-23] MEDS ORDERED: NALOXONE 0.4 MG/ML VIAL. IV PRN (11:00)
[2019-06-23] MEDS ORDERED: oxyCODONE/APAP 5/325 1 TAB TABLET PO PRN (11:00)
[2019-06-23] MEDS ORDERED: LACTULOSE 20 GM/30 ML SOLUTION. PO PRN (11:00)
[2019-06-23] MEDS ORDERED: MAGNESIUM HYDROXIDE 2,400 MG/30 ML ORAL.SUSP. PO PRN (11:00)
[2019-06-23] MEDS ORDERED: SIMETHICONE 80 MG TAB.CHEW PO PRN (11:00)
[2019-06-23] MEDS ORDERED: MAG HYDROX/ALUMINUM HYD/SIMETH 30 ML ORAL.SUSP PO PRN (11:00)
[2019-06-23] MEDS ORDERED: 0.9 % SODIUM CHLORIDE 10 ML DISP.SYRIN. IV PRN (11:00)
[2019-06-23] MEDS ORDERED: ZOLPIDEM 5 MG TABLET. PO PRN (11:00)
[2019-06-23] MEDS ORDERED: diphenhydrAMINE HCL 25 MG CAPSULE PO PRN (11:00)
[2019-06-23] MEDS ORDERED: diphenhydrAMINE 50 MG/ML VIAL IV PRN (11:00)
[2019-06-23] MEDS ORDERED: CALCIUM CARBONATE 500 MG TAB.CHEW PO PRN (11:00)
[2019-06-23] MEDS: MORPHINE SULFATE 2 MG/ML VIAL. IV PRN ×3 (12:12→18:39)
[2019-06-23] MEDS: hydroCHLOROthiazide 12.5 MG CAPSULE PO SCH (13:00)
[2019-06-23] MEDS: LOSARTAN POTASSIUM 50 MG TABLET. PO SCH (13:00)
[2019-06-23] MEDS: metFORMIN 500 MG TABLET PO SCH ×3 (13:00→21:00)
[2019-06-23] MEDS: PANTOPRAZOLE 40 MG TABLET.DR. PO SCH (13:00)
--- NOTE | 2019-06-23 13:00 | NUR ---
Nursing Note: Glucophage held due to Pt. not taking po foods at this time. Pt. states she took BP medications this am at 0500. Carlie Hardin RN
[2019-06-23] MEDS: POLYVINYL ALCOHOL 1.4% OPHTH SOLUTION 15ML BOTTLE. OD PRN ×2 (13:35→22:34)
[2019-06-23] MEDS: CIPROFLOXACIN 0.3% OPHTH SOLUTION 5ML BOTTLE. OU SCH ×2 (14:52→22:34)
--- NOTE | 2019-06-23 17:28 | OP ---
DATE OF SURGERY: 06/23/2019 PREOPERATIVE DIAGNOSES: Pelvic organ prolapse with some symptomatic cystocele, rectocele and uterine prolapse as well. POSTOPERATIVE DIAGNOSES: Pelvic organ prolapse with some symptomatic cystocele, rectocele and uterine prolapse as well. PROCEDURE: Laparoscopic-assisted vaginal hysterectomy, bilateral salpingo-oophorectomy, anterior and posterior colporrhaphy, perineoplasty and cystoscopy. SURGEON: Ramo Valderrama MD ORTHOTIST OR PROSTHETIST: ALETHEA Mcfarlane ANESTHESIOLOGIST: Dr. Kohli. ANESTHESIA: General. ESTIMATED BLOOD LOSS: 25 mL. URINE OUTPUT: 500 mL clear via Garrido catheter. IV FLUIDS: 1 liter of Crystalloid. SPECIMENS: Cervix, uterus, bilateral tubes and ovaries, and segments of vaginal mucosa. FINDINGS: Second to third degree uterine prolapse with cystocele, second-degree rectocele. COMPLICATIONS: None. DESCRIPTION OF PROCEDURE: This patient was taken to the operating room where general anesthesia was placed. The patient was placed in a dorsal lithotomy position in [facility]. The patient's abdomen and vagina were both prepped and draped in the normal sterile fashion and a Garrido catheter had been inserted under sterile technique. Upon my arrival, a timeout was performed. Once everyone agreed, a bivalve speculum was placed in the patient's vagina. A single-tooth tenaculum was used to grasp the anterior lip of the cervix. A 10 mL of 0.25% Marcaine with epinephrine was used to circumferentially inject around the cervix for both hemodissection and hemostatic purposes later. The Valtchev uterine manipulator was then placed through the endocervical os, locked on the single-tooth tenaculum and the bivalve speculum was then removed. Top gloves were discarded and changed. Attention was then turned to the abdomen where a small infraumbilical skin incision was made with the scalpel. A curved Deepa was used to dissect through the subcuticular layer to the fascia. The 5 mm Visiport was used to directly enter the abdominal cavity. Opening patient pressure was 2-3 mmHg. Carbon dioxide gas was used to appropriately insufflate the abdominal cavity to maintain a pressure of 15. However, upon initial insufflation she did vasovagal with her heart rate dropping, so we lowered the pressure to 13. We actually turned it off and allowed her to recover and lowered the patient pressure of 13 and we were able to safely operate. So, the pressure was set at 13. At this point, the patient was placed in Trendelenburg position where right and left lower quadrant ports were placed under direct visualization atraumatically after finding an area clear on the inside transilluminating the abdominal wall, finding an area clear of any vasculature after making an incision and placing a 5 mm disposable trocar in under direct visualization. The 3-4 mL of air was then placed in the cuffs on both sides. The camera was moved laterally to look at the umbilical port. Once it was found to be clear and in a good spot the balloons on it was inflated as well. Camera was moved back to the midline. After the patient was in Trendelenburg, we elevated the left tube and ovary, finding the ureter coursing low, staying high on the infundibulopelvic ligament, cauterizing and cutting the infundibulopelvic ligament, going over and crossing the left round ligament. This was with the LigaSure, cauterizing and cutting. This was done exactly the same on the right, elevating the right tube and ovary, again finding the ureter coursing low on the right sidewall, staying high on the IP well above the ureter, cauterizing and cutting going under the tube and ovary over to the right round ligament as well. At this point, the uterus was pushed cephalad in and the [place] was used to elevate the bladder flap and the monopolar hook was used to go across and peeling the bladder down sharply. Once it was down, the uterine vessels were obtained on both sides, cauterizing with the LigaSure and cutting and then staying hugging the cervix, going down both sides to the level of the uterosacrals obtaining the whole blood supply until the cervix and uterus were free and blanched. Once this was done, everything was removed from the abdomen and attention was turned vaginally. The single tooth and Valtchev were removed. A weighted speculum was placed in the patient's vagina. Thyroid Nenita clamps were placed on the anterior and posterior lips of the cervix respectively. A scalpel was used to make a circumferential incision in the cervix. I literally went right over the cervical edge, the nubbin, and made the incision very, very, very low knowing there was a low cystocele, to stay low from the bladder and gently pushed up the anterior vaginal mucosa and bladder off of the cervix. Going posteriorly, I was right on the uterus, I could feel it and I got in immediately and placed a #0 Vicryl stitch securing uterosacral ligament to the vaginal cuff. Replacing the short weighted vaginal speculum with the long Stephen speculum in the posterior cul-de-sac. Once we were in anteriorly, the Ray-Cornell was removed and a curved Elinor was placed in here. Just because the bladder was so low, even though I went as low as I possibly could on the cervix literally not even a cm in just over that cervical nubbin. I went ahead and decided to get the cystoscope ready just to look at the bladder just to ensure there was nothing, so at the very end before going above after doing the LAVH anterior and posterior repairs, I went ahead and did a cystoscopy. So I called for the cystoscope at this point, knowing that it was. The uterosacrals were doubly clamped with curved Everardo's on the left side. They were doubly clamped, cut with Guzman scissors and suture ligated x 2. Second one was taken through the vaginal cuff, tagging it with a straight Deepa clamp and cutting and passing the needle off. This was done exactly the same on the right side, double clamping the uterosacrals with curved Everardo's, cutting with Guzman scissors, suture ligating x 2 with 0 Vicryl, taking the second one through the vaginal cuff, tagging it with a straight Deepa clamp. There was nothing left on the right side, the right tube and ovary were falling out, this was a small uterus. There was a little bit on the left. The curved mixture was taken around it and the vaginal LigaSure was used to cauterize and cut the remaining pedicle on the patient's left side. Cervix, uterus, bilateral tubes and ovaries were delivered in total and passed off for permanent pathology. At this point, a sponge stick was used to examine the pedicles, they were dry. The long Stephen speculum was removed at this point and replaced with the short weighted vaginal speculum. A long Allis was used to grasp the anterior bladder peritoneum. Again, it was very low, but nothing appeared to be injured, I just wanted to ensure everything was okay, so 2-0 Vicryl was taken through the anterior bladder peritoneum, left uterosacral ligament, posterior peritoneum and right uterosacral ligament, thus closing the peritoneum in a pursestring like fashion. The right and left uterosacral tags were clipped. At this point, 10 mL of a dilute solution of 200 mL of injectable saline to 50 mL of 0.25% Marcaine with epinephrine was used. A 10 mL were used on the anterior mucosa to inject it a small vertical incision was made and Allis clamps were placed on either side of this and the anterior defect was opened up, sharply and bluntly with the Metzenbaum scissors and the open Ray-Cornell was used to gently push down the bladder off the anterior vaginal mucosa easily peeled off. A series of 2 or 3 Allis were used to go up to about a cm below the urethra and reduce the anterior defect. It was actually kind of small, she had a narrow vagina and a short vagina. Three or 4 interrupted 2-0 Vicryl sutures were placed first placing them and tagging them and then going back and tying them from the superior to inferior and reducing the defect all the same while. The excess vaginal mucosa was trimmed. Once this was done, it was closed with a full length 2-0 Vicryl in a running locked fashion the anterior defect and then transitioning into the cuff and it was tied to that posterior cuff tag. One interrupted suture was placed in the middle for hemostasis, but it was dry. At this point, the posterior repair was begun. I believe 30 or 40 mL was used to inject in that dilute solution the 200:50 of injectable saline the local was used to inject the posterior defect. Kochers were placed at 4 and 7 o'clock and I injected the perineal body and the posterior defect, I think with 40 mL of that dilute solution and then I used a scalpel to make a wedge incision in the vagina and on the perineal body, removing it. Then, using the Metzenbaum scissors to open up the posterior defect, placing Allis along the way, this was a larger defect and then again using the Metzenbaum scissors and the Ray-Cornell to release it from the edges and gently push up the posterior defect off the posterior vaginal mucosa. Once this was done, I believe, 6 or 7 interrupted 2-0 Vicryl sutures were used to reduce the posterior defect first placing the suture, tagging them and then going back and tying them at the end. Once this was done, a few interrupteds were placed in the middle. Once this was done, the excess vaginal mucosa was again trimmed and it was closed with a full length 2-0 Vicryl from the apex of the vagina down to the opening reapproximating the hymenal area, the opening of the introitus going under and then closing the perineal body, reapproximating it with deep sutures and then subcuing the mucosa over the perineal body, taking it back in the vagina and tying it off. All the sutures looked dry. We examined them very good. The Garrido bulb was deflated. The camera had been white balanced, light was on, ready to go, scope was primed so it was placed in. I put 400-500 mL in the bladder, bubbles were seen, both ureters were being positively identified. There was no trauma to the bladder, no blood, no bleeding and the bubble was seen holding 400-500 mL of fluid. So once this was done, that was ended, the Garrido was placed back in by Cally at this point and then it was reinsufflated. All gloves were discarded and changed. Counts below were good and attention was turned back above for a second look. At this point, she was reinsufflated, placed back in Trendelenburg. There was no bleeding; however, the bladder was still full and not draining, so Cally did go below and we deflated the bulb, replaced the catheter and it drained very, very well, so I am not sure if it was just not in correctly the second time or what, but it was drained very well. There was no bleeding from the cuff. Copious irrigation revealed hemostasis. Right and left pericolic gutters were clear. There were some bowel adhesions on the right side, I did not touch those, I just noted those, but I did not do any of that, but the pedicles were all dry, the cuff looked good, so Tisseel was placed over the pedicles and the cuff and at this point, the right and left lower quadrant ports, the cuffs were deflated, they were removed under direct visualization and were hemostatic. Gas was released from the umbilical port, the cuff was also deflated on this. Then it was removed. Then she closed them all in a subcuticular fashion I believe with 3-0 Monocryl and Steri-Strips. The patient was then awakened from anesthesia and is being brought to recovery room in stable condition. RAMO VALDERRAMA MD DR: CHRIS/kathie JOB#: [id number] / [id number]
[2019-06-23] MEDS ORDERED: NEO/POLYMYX/DEXAMETH OPHTH OINTMENT 3.5GM TUBE. OD ONE (20:00)
[2019-06-23] MEDS ORDERED: ATORVASTATIN CALCIUM 20 MG TABLET PO SCH (21:00)
[2019-06-23] MEDS: HYDROcodone/APAP 5/325MG 1 TAB TABLET PO PRN (22:33)
[2019-06-23] MEDS ORDERED: NEO/POLYMYX/DEXAMETH OPHTH OINTMENT 3.5GM TUBE. OD SCH (23:00)
[2019-06-24 01:10] VITALS: BP 119/66
[2019-06-24] MEDS: HYDROcodone/APAP 5/325MG 1 TAB TABLET PO PRN (04:38)
[2019-06-24] MEDS: PANTOPRAZOLE 40 MG TABLET.DR. PO SCH (04:38)
[2019-06-24 06:22] VITALS: BP 149/73
--- NOTE | 2019-06-24 07:24 | PDOC ---
Date and Time Pt with post-op corneal abrasion. Eye bandage placed after surgery. Evaluated pt this am--no symptoms abrasion resolved. Current Medications Current Medications Ondansetron HCl (Zofran) 4 mg PRN Q6HRS PRN IV NAUSEA/VOMITING; Start 06/23/19 at 07:00; Stop 06/23/19 at 18:00; Status DC Fentanyl Citrate (Fentanyl 2ml Vial) 25 mcg PRN Q5MIN PRN IV MILD PAIN 1-3; Start 06/23/19 at 07:00; Stop 06/23/19 at 18:00; Status DC Fentanyl Citrate (Fentanyl 2ml Vial) 50 mcg PRN Q5MIN PRN IV MODERATE TO SEVERE PAIN Last administered on 06/23/19at 11:17; Start 06/23/19 at 07:00; Stop 06/23/19 at 18:00; Status DC Ringer's Solution 1,000 ml @ 30 mls/hr Q24H IV Last administered on 06/23/19at 07:28; Start 06/23/19 at 07:00; Stop 06/23/19 at 18:59; Status DC Prochlorperazine Edisylate (Compazine) 5 mg PACU PRN PRN IV NAUSEA, MRX1; Start 06/23/19 at 07:00; Stop 06/23/19 at 18:00; Status DC Bupivacaine HCl/ Epinephrine Bitart (Sensorcaine-Epi 0.25%-1:807122 Mpf) 90 ml 1X ONCE INJ Last administered on 06/23/19at 10:17; Start 06/23/19 at 06:00; Stop 06/23/19 at 06:01; Status DC Cefazolin Sodium/ Dextrose 50 ml @ 100 mls/hr 1X PREOP PRN IV PRIOR TO PROCEDURE Last administered on 06/23/19at 08:31; Start 06/23/19 at 06:00; Stop 06/23/19 at 18:00; Status DC Propofol 20 ml @ As Directed STK-MED ONCE IV ; Start 06/23/19 at 06:44; Stop 06/23/19 at 06:44; Status DC Lidocaine HCl (Lidocaine Pf 2% Vial) 5 ml STK-MED ONCE .ROUTE ; Start 06/23/19 at 06:44; Stop 06/23/19 at 06:44; Status DC Dexamethasone Sodium Phosphate (Decadron) 4 mg STK-MED ONCE .ROUTE ; Start 06/23/19 at 06:44; Stop 06/23/19 at 06:44; Status DC Ondansetron HCl (Zofran) 4 mg STK-MED ONCE .ROUTE ; Start 06/23/19 at 06:44; Stop 06/23/19 at 06:44; Status DC Rocuronium Pickrell (Zemuron) 50 mg STK-MED ONCE .ROUTE ; Start 06/23/19 at 06:44; Stop 06/23/19 at 06:44; Status DC Fentanyl Citrate (Fentanyl 2ml Vial) 100 mcg STK-MED ONCE .ROUTE ; Start 06/23/19 at 06:45; Stop 06/23/19 at 06:45; Status DC Estrogens Conjugated (Premarin) 30 jona STK-MED ONCE .ROUTE ; Start 06/23/19 at 07:08; Stop 06/23/19 at 07:08; Status DC Indigotindisulfonate Sodium (Indigo [place]) 40 mg STK-MED ONCE .ROUTE ; Start 06/23/19 at 07:08; Stop 06/23/19 at 07:08; Status DC Sodium Chloride (SODIUM CHLORIDE 20ml) 20 ml STK-MED ONCE IJ ; Start 06/23/19 at 07:09; Stop 06/23/19 at 07:09; Status DC Insulin Human Lispro (HumaLOG VIAL for OP,RR ONLY) 0-10 units PRN Q1HR PRN SQ PER PROTOCOL Last administered on 06/23/19at 07:41; Start 06/23/19 at 07:30; Stop 06/23/19 at 15:00; Status DC Atorvastatin Calcium (Lipitor) 20 mg QHS PO Last administered on 06/23/19at 22:34; Start 06/23/19 at 21:00 Metformin HCl (Glucophage) 500 mg QID PO ; Start 06/23/19 at 13:00 Losartan Potassium (Cozaar) 50 mg DAILY PO ; Start 06/23/19 at 13:00 Pantoprazole Sodium (Protonix) 40 mg DAILYAC PO Last administered on 06/24/19at 04:38; Start 06/23/19 at 13:00 Fentanyl Citrate (Fentanyl 2ml Vial) 100 mcg STK-MED ONCE .ROUTE ; Start 06/23/19 at 08:15; Stop 06/23/19 at 08:16; Status DC Glycopyrrolate (Robinul) 1 mg STK-MED ONCE .ROUTE ; Start 06/23/19 at 08:20; Stop 06/23/19 at 08:20; Status DC Neostigmine Methylsulfate (Neostigmine Methylsulfate) 5 mg STK-MED ONCE .ROUTE ; Start 06/23/19 at 08:23; Stop 06/23/19 at 08:24; Status DC Sevoflurane (Ultane) 90 ml STK-MED ONCE IH ; Start 06/23/19 at 09:23; Stop 06/23/19 at 09:23; Status DC Al Hydroxide/Mg Hydroxide (Mylanta Plus Xs) 30 ml PRN Q3HRS PRN PO DYSPEPSIA; Start 06/23/19 at 11:00 Calcium Carbonate/ Glycine (Tums) 500 mg PRN Q3HRS PRN PO INDIGESTION; Start 06/23/19 at 11:00 Simethicone (Gas-X) 80 mg PRN AFTMEALHC PRN PO GAS / BLOATING; Start 06/23/19 at 11:00 Diphenhydramine HCl (Benadryl) 25 mg PRN Q6HRS PRN PO ITCHING; Start 06/23/19 at 11:00 Diphenhydramine HCl (Benadryl) 25 mg PRN Q6HRS PRN IV ITCHING; Start 06/23/19 at 11:00 Zolpidem Tartrate (Ambien) 5 mg PRN QHS PRN PO INSOMNIA; Start 06/23/19 at 11:00 Naloxone HCl (Narcan) 0.1 mg PRN Q2MIN PRN IV ADMIN; Start 06/23/19 at 11:00 Sodium Chloride (Normal Saline Flush) 3 ml QSHIFT PRN IV AFTER MEDS AND BLOOD DRAWS; Start 06/23/19 at 11:00 Potassium Chloride/Sodium Chloride 1,000 ml @ 125 mls/hr Q8H IV Last administered on 06/23/19at 20:03; Start 06/23/19 at 13:00 Morphine Sulfate (Morphine Sulfate) 2 mg PRN Q1HR PRN IV PAIN Last administered on 06/23/19at 18:39; Start 06/23/19 at 11:00 Oxycodone/ Acetaminophen (Percocet 5/325) 2 tab PRN Q4HRS PRN PO MODERATE PAIN, SEVERE PAIN; Start 06/23/19 at 11:00 Acetaminophen/ Hydrocodone Bitart (Lortab 5/325) 2 tab PRN Q4HRS PRN PO MODERATE PAIN, SEVERE PAIN Last administered on 06/24/19at 04:38; Start 06/23/19 at 11:00 Magnesium Hydroxide (Milk Of Magnesia) 2,400 mg PRN Q12HR PRN PO CONSTIPATION; Start 06/23/19 at 11:00 Lactulose (Lactulose) 20 gm PRN Q12HR PRN PO CONSTIPATION; Start 06/23/19 at 11:00 Ondansetron HCl (Zofran) 4 mg PRN Q6HRS PRN IV NAUESA, 1ST CHOICE Last adm inistered on 06/23/19at 19:21; Start 06/23/19 at 11:00 Fentanyl Citrate (Fentanyl 2ml Vial) 100 mcg STK-MED ONCE .ROUTE ; Start 06/23/19 at 11:09; Stop 06/23/19 at 11:09; Status DC Hydrochlorothiazide (Microzide) 12.5 mg DAILY PO ; Start 06/23/19 at 13:00 Artificial Tears (Artificial Tears) 1 drop PRN Q15MIN PRN OD DRY EYE Last administered on 06/23/19at 22:34; Start 06/23/19 at 12:45 Ciprofloxacin (Ciloxan Ophth) 1 drop QID OU Last administered on 06/23/19at 22:34; Start 06/23/19 at 17:00 Neomycin/ Polymyxin/ Dexamethasone (Maxitrol) 0.25 inch 1X ONCE OD Last administered on 06/23/19at 20:03; Start 06/23/19 at 20:00; Stop 06/23/19 at 20:01; Status DC Neomycin/ Polymyxin/ Dexamethasone (Maxitrol) 0.25 inch QID OD Last administered on 06/23/19at 22:34; Start 06/23/19 at 23:00 Active Scripts Active Atorvastatin Calcium 20 Mg Tablet 20 Mg PO QHS Reported Protonix (Pantoprazole Sodium) 20 Mg Tablet.dr 40 Mg PO DAILY Metformin Hcl 500 Mg Tablet 500 Mg PO QID Multi Vitamin Daily (Multivitamin) 1 Each Tablet 1 Each PO DAILY Vitamin B-12 (Cyanocobalamin (Vitamin B-12)) 1,000 Mcg Tablet 1,000 Mcg PO DAILY Losartan-Hctz 50-12.5 Mg Tab (Losartan/Hydrochlorothiazide) 1 Each Tablet 1 Tab PO DAILY Pertinent Labs/Test Laboratory Tests Test 06/23/19 07:23 06/23/19 08:10 06/23/19 10:45 Glucose (Fingerstick) 113 mg/dL (70-99) 135 mg/dL (70-99) 148 mg/dL (70-99) Laboratory Tests Test 06/23/19 07:23 06/23/19 08:10 06/23/19 10:45 Glucose (Fingerstick) 113 mg/dL (70-99) 135 mg/dL (70-99) 148 mg/dL (70-99) LAST VITALS Vital Signs Date Time Temp Pulse Resp B/P (MAP) Pulse Ox O2 Delivery O2 Flow Rate FiO2 06/24/19 06:22 97.9 72 18 149/73 (98) 99 Room Air 97.9 06/23/19 11:30 2 FEILX MCMAHON MD Jun 24, 2019 07:24
[2019-06-24 07:45] LABS: CALCIUM 8.4 mg/dL (8.5-10.1); CREATININE 0.8 mg/dL (0.6-1.0); GFR 70.9; POTASSIUM 3.8 mmol/L (3.5-5.1)
[2019-06-24] MEDS: LOSARTAN POTASSIUM 50 MG TABLET. PO SCH (09:29)
[2019-06-24] MEDS: metFORMIN 500 MG TABLET PO SCH (09:29)
[2019-06-24] MEDS: hydroCHLOROthiazide 12.5 MG CAPSULE PO SCH (09:30)
--- NOTE | 2019-06-24 10:51 | PDOC ---
SURGICAL PROGRESS NOTE Subjective Doing well. No complaints now. Eye much better after the ointment Dr. Bill gave her. Pain not bad, ambulating well, Scant spotting only with voiding. Tolerating PO without n/v Vital Signs Vital Signs Date Time Temp Pulse Resp B/P (MAP) Pulse Ox O2 Delivery O2 Flow Rate FiO2 06/24/19 09:30 82 06/24/19 06:22 97.9 18 149/73 (98) 99 Room Air 97.9 06/23/19 11:30 2 I&O Intake and Output 06/24/19 07:00 Intake Total 4230 ml Output Total 3175 ml Balance 1055 ml Intake Oral 680 ml IV Total 2350 ml Other 1200 ml Output Urine Total 3050 ml Emesis 100 ml Estimated Blood Loss 25 ml PATIENT HAS A JENKINS: No General: Alert, Oriented X3, Cooperative, No acute distress HEENT: Atraumatic Heart: Regular rate Abdomen: Soft, No tenderness, Other (all port sites c/d/i) Extremities: No clubbing, No cyanosis, No edema, No tenderness/swelling Skin: No rashes, No breakdown Neuro: Normal gait, Normal speech Psych/Mental Status: Mental status NL, Mood NL Labs Laboratory Tests Test 06/23/19 07:23 06/23/19 08:10 06/23/19 10:45 06/24/19 07:05 Glucose (Fingerstick) 113 mg/dL (70-99) 135 mg/dL (70-99) 148 mg/dL (70-99) Hematocrit 40.6 % (36.0-47.0) Sodium Level 141 mmol/L (136-145) Potassium Level 3.8 mmol/L (3.5-5.1) Chloride Level 105 mmol/L (98-107) Carbon Dioxide Level 28 mmol/L (21-32) Anion Gap 8 (6-14) Blood Urea Nitrogen 9 mg/dL (7-20) Creatinine 0.8 mg/dL (0.6-1.0) Estimated GFR (Cockcroft-Gault) 70.9 Glucose Level 143 mg/dL (70-99) Calcium Level 8.4 mg/dL (8.5-10.1) Laboratory Tests Test 06/23/19 10:45 06/24/19 07:05 Glucose (Fingerstick) 148 mg/dL (70-99) Hematocrit 40.6 % (36.0-47.0) Sodium Level 141 mmol/L (136-145) Potassium Level 3.8 mmol/L (3.5-5.1) Chloride Level 105 mmol/L (98-107) Carbon Dioxide Level 28 mmol/L (21-32) Anion Gap 8 (6-14) Blood Urea Nitrogen 9 mg/dL (7-20) Creatinine 0.8 mg/dL (0.6-1.0) Estimated GFR (Cockcroft-Gault) 70.9 Glucose Level 143 mg/dL (70-99) Calcium Level 8.4 mg/dL (8.5-10.1) I have reviewed the following labs, vitals, nursing Endocrine: Diabetes Assessment/Plan POD#1 s/p LAVH/BSO/a&p repairs/cysto Routine PO care d/c to home today NPV x 6 weeks Light/limited activity x 2 weeks keep scheduled follow up with me in the office in one week call or return sooner for any other questions or concerns not limited to but i ncluding pain unrelieved with pain meds, increased or unexplained vaginal bleeding or T>100.[address] while on narcotic pain meds already has meds filled at home ok for OTC ibuprofen prn as well RAMO NOE MD Jun 24, 2019 10:51
[2019-06-24 10:57] VITALS: BP 134/80
--- NOTE | 2019-06-24 10:57 | PDOC3 ---
Discharge Summary Visit Information Date of Admission: Jun 23, 2019 Date of Discharge: Jun 24, 2019 Admitting Diagnosis Comment: pelvic organ prolapse Brief Hospital Course Allergies Allergies Coded Allergies Type Severity Reaction Last Updated Verified codeine Allergy Intermediate 06/14/19 Yes liraglutide Adverse Reaction Intermediate Nausea 06/14/19 Yes Vital Signs Vital Signs Date Time Temp Pulse Resp B/P (MAP) Pulse Ox O2 Delivery O2 Flow Rate FiO2 06/24/19 09:30 82 06/24/19 06:22 97.9 18 149/73 (98) 99 Room Air 97.9 06/23/19 11:30 2 Lab Results Laboratory Tests Test 06/23/19 07:23 06/23/19 08:10 06/23/19 10:45 06/24/19 07:05 Glucose (Fingerstick) 113 mg/dL (70-99) 135 mg/dL (70-99) 148 mg/dL (70-99) Hematocrit 40.6 % (36.0-47.0) Sodium Level 141 mmol/L (136-145) Potassium Level 3.8 mmol/L (3.5-5.1) Chloride Level 105 mmol/L (98-107) Carbon Dioxide Level 28 mmol/L (21-32) Anion Gap 8 (6-14) Blood Urea Nitrogen 9 mg/dL (7-20) Creatinine 0.8 mg/dL (0.6-1.0) Estimated GFR (Cockcroft-Gault) 70.9 Glucose Level 143 mg/dL (70-99) Calcium Level 8.4 mg/dL (8.5-10.1) Laboratory Tests Test 06/24/19 07:05 Hematocrit 40.6 % (36.0-47.0) Sodium Level 141 mmol/L (136-145) Potassium Level 3.8 mmol/L (3.5-5.1) Chloride Level 105 mmol/L (98-107) Carbon Dioxide Level 28 mmol/L (21-32) Anion Gap 8 (6-14) Blood Urea Nitrogen 9 mg/dL (7-20) Creatinine 0.8 mg/dL (0.6-1.0) Estimated GFR (Cockcroft-Gault) 70.9 Glucose Level 143 mg/dL (70-99) Calcium Level 8.4 mg/dL (8.5-10.1) Brief Hospital Course Ms. Jonas is a 68 old female who presented with symptomatic pelvic organ prolapse. She underwent LAVH/BSO/A&P repairs/cystoscopy yesterday without complications. She has only experienced eye pain postoperatively. Initially seen by anesthesia and given cipro drops which helped initially and slept yesterday then woke up with it again, so Dr. Bill ordered ointment and pt says it helped a lot and much better. otherwise unremarkable postoperative course. Voiding well without a catheter, ambulating well, tolerating PO and wanting to go home. Discharge Information Condition at Discharge: Improved Follow Up: Weeks Disposition/Orders: D/C to Home Scheduled Atorvastatin Calcium (Atorvastatin Calcium) 20 Mg Tablet, 20 MG PO QHS for hyperlipidemia, #30 Prescribed by: FABRICIO CHUNG on 03/31/191703 Last Action: Continued on 06/23/19744 by RAMO NOE Cyanocobalamin (Vitamin B-12) (Vitamin B-12) 1,000 Mcg Tablet, 1,000 MCG PO DAILY, (Reported) Entered as Reported by: Ivanna Larson on 05/22/181729 Last Action: HELD on 06/23/19744 by RAMO NOE Losartan/Hydrochlorothiazide (Losartan-Hctz 50-12.5 Mg Tab) 1 Each Tablet, 1 TAB PO DAILY, #90 Ref 3 (Reported) Entered as Reported by: Ivanna Larson on 05/22/181729 Last Taken: Unknown Dose on 06/23/19644 Last Action: Converted on 06/23/19744 by RAMO NOE Metformin Hcl (Metformin Hcl) 500 Mg Tablet, 500 MG PO QID for ANTI-DIABETIC, Ref 0 (Reported) Entered as Reported by: Ivanna Larson on 05/22/181729 Last Action: Continued on 06/23/19744 by RAMO NOE Multivitamin (Multi Vitamin Daily) 1 Each Tablet, 1 EACH PO DAILY, (Reported) Entered as Reported by: Ivanna Larson on 05/22/181729 Last Action: HELD on 06/23/19744 by RAMO NOE Pantoprazole Sodium (Protonix) 20 Mg Tablet.dr, 40 MG PO DAILY, (Reported) Entered as Reported by: Svetlana Rucker on 03/30/19103 Last Action: Converted on 06/23/19 0745 by RAMO NOE Patient Instructions Patient Instructions POD#1 s/p LAVH/BSO/a&p repairs/cysto Routine PO care d/c to home today NPV x 6 weeks Light/limited activity x 2 weeks keep scheduled follow up with me in the office in one week call or return sooner for any other questions or concerns not limited to but including pain unrelieved with pain meds, increased or unexplained vaginal bleeding or T>100.[address] while on narcotic pain meds already has meds filled at home ok for OTC ibuprofen prn as well RAMO NOE MD Jun 24, 2019 10:57
--- NOTE | 2019-06-25 08:45 | PATHOLOGY ---
[facility] Accession Number: [id number] . 01 Material submitted: . uterus - UTERUS,CERVIX, BILATERAL FALLOPIAN TUBES AND O. Modifiers: bilateral . 01 Clinical history: . Cystocele, rectocele, uterine prolapse . 02 Diagnosis: Uterus and attached bilateral fallopian tubes and ovaries, laparoscopic assisted vaginal hysterectomy with bilateral salpingo-oophorectomy: - Mild parakeratosis of exocervix. - Chronic cervicitis with focal squamous metaplasia. - Atrophic endometrium. - Leiomyomas (4), uterine corpus, largest measuring 0.9 cm. - Medial arterial calcification, myometrium. - Involutional changes of bilateral fallopian tubes and ovaries. . Segments of vaginal mucosa, anterior and posterior repair: - Focal thinning of vaginal squamous epithelium with underlying chronic inflammation. (JPM:madai; 06/24/2019) MBR/06/25/2019 . 02 Comment: There is no atypia or evidence of malignancy. (JPM:madai; 06/24/2019) . 02 Electronically signed: . Jadon Santos MD, Pathologist NPI- [id number] . 01 Gross description: . The specimen is received in formalin labeled "Josei Pritesh, uterus, cervix, bilateral fallopian tubes and ovaries, vaginal mucosa". Received is a 38 g, 5.7 x 4.0 x 2.8 cm uterus with attached cervix and attached adnexa, weighing 4 and 3 g, left and right, respectively. The uterine serosa is pink-gonzalez and smooth in appearance. The 1.1 cm cervical os is surrounded by pink-gonzalez, disrupted to pale gonzalez, smooth ectocervical mucosa. The uterus is oriented using the peritoneal reflection and the anterior paracervical margin is inked black. The uterus is opened laterally to reveal a pale gonzalez endocervical canal measuring 2.1 cm in length. The endometrial cavity is triangular measuring 3.8 cm in length by 2.2 cm in width. The endometrium is pale gonzalez, glistening in appearance and measures 0.1 cm in thickness. Serial sectioning reveals a gonzalez-pink, trabeculated myometrium measuring 1.4 cm in thickness displaying four intramural fibroids ranging in size from 0.2to 0.9 cm in maximum dimensions . The left adnexa consists of a fimbriated fallopian tube measuring 3.4 cm in length by up to 0.5 cm in diameter attached to a 2.3 x 1.3 x 0.9 cm ovary. Sectioning through the fallopian tube reveals a pinpoint lumen and the fallopian tube appears grossly unremarkable. Sectioning through the ovary reveals pale gonzalez, normal ovarian stroma. . The right adnexa consists of a fimbriated fallopian tube measuring 3.0 cm in length by up to 0.4 cm in diameter attached to a 1.9 x 1.2 x 1.0 cm ovary. Sectioning through the fallopian tube reveals a pinpoint lumen and the fallopian tube appears grossly unremarkable. Sectioning through the ovary reveals pale gonzalez, normal ovarian stroma. . Also received within the specimen container are multiple segments of pink-gonzalez vaginal mucosa measuring 3.7 x 1.8 x 0.6 cm in aggregate dimensions. The specimen is submitted representatively as follows: . A1 12:00 cervix A2 6:00 cervix A3 anterior endomyometrium with fibroids A4 posterior endomyometrium with fibroid A5 intramural fibroid A6 left adnexa A7 right adnexa A8 separately submitted vaginal mucosa. (CAA; 06/23/2019) QAC/QAC . 02 Pathologist provided ICD-10: D25.1, D25.2, N72, N76.0 . 02 CPT . 624919, 868512 Specimen Comment: A courtesy copy of this report has been sent to Specimen Comment: [phone]. Specimen Comment: Report sent to Performed at: 01 [facility] [address] [id number] MD Bertrand Gallagher MD Phone: [phone] Performed at: 02 [facility] [address] [place], [place] [id number] MD Jadon Santos MD Phone: [phone]
== END 2019-06-24 11:21 | disposition home or self-care (01) ==
LOC: SURG 06:04 → 3 NORTH 11:16
PROVIDERS: ADMIT Obstetrics & Gynecology; ATTEND Obstetrics & Gynecology
PROC: 0UT9FZZ Resection of Uterus, Via Natural or Artificial Opening With Percutaneous Endoscopic Assistance (ICD-10-PCS; principal; 2019-06-23 07:30)
PROC: 0UT2FZZ Resection of Bilateral Ovaries, Via Natural or Artificial Opening With Percutaneous Endoscopic Assistance (ICD-10-PCS; 2019-06-23 07:30)
PROC: 0UT7FZZ Resection of Bilateral Fallopian Tubes, Via Natural or Artificial Opening With Percutaneous Endoscopic Assistance (ICD-10-PCS; 2019-06-23 07:30)
DX: N81.4 Uterovaginal prolapse, unspecified (principal); N81.6 Rectocele; N81.10 Cystocele, unspecified; I10 Essential (primary) hypertension; E11.9 Type 2 diabetes mellitus without complications; E78.00 Pure hypercholesterolemia, unspecified; Z83.3 Family history of diabetes mellitus; Z82.49 Family history of ischemic heart disease and other diseases of the circulatory system
CPT/HCPCS: 36415; 57260; 58552; 80048; 82962; 85014; 86850; 86900; 86901; 88302; 88305; 96374; 96375; 96376; A7015; G0378; G0379; J0696; J1100; J2001; J2270; J2405; J2704; J2710; J3010; J3490; J7030; J7120

== ENCOUNTER 2020-03-02 22:02 | Emergency (ER) | payer BC ==
[~2020-03-02] VITALS: Ht 152.4 cm; Wt 46.3 kg
--- NOTE | 2020-03-02 22:35 | PHYS DOC ---
Past Medical History Past Medical History: Diabetes-Type II, GERD, Hypertension Past Surgical History: Other Additional Past Surgical Histo: Right arm Smoking Status: Never Smoker Alcohol Use: None Drug Use: None General Adult EDM: Chief Complaint: HYPERTENSION HPI: HPI: Patient is a 69 year old female who presents via POV with report of palpitations and elevated blood pressure. Patient states that earlier this afternoon she had taken her blood pressure after standing up and having palpitations. She states that her blood pressure been fairly elevated and so she took her losartan. She states that blood pressure was still elevated and when she stands up, she still has the palpitations. She denies any actual chest pain however. She denies any nausea, vomiting or diaphoresis. She denies headache. [] Review of Systems: Review of Systems: Constitutional: Denies fever or chills. [] Respiratory: Denies cough or shortness of breath. [] Cardiovascular: Denies chest pain or edema. Complains of palpitations. [] GI: Denies abdominal pain, nausea, vomiting. [] Neurologic: Denies headache, focal weakness or sensory changes. [] A full 10 point review of systems has been reviewed and is otherwise negative. Heart Score: Risk Factors: Risk Factors: DM, Current or recent (<one month) smoker, HTN, HLP, family history of CAD, obesity. Risk Scores: Score 0 - 3: 2.5% MACE over next 6 weeks - Discharge Home Score 4 - 6: 20.3% MACE over next 6 weeks - Admit for Clinical Observation Score 7 - 10: 72.7% MACE over next 6 weeks - Early Invasive Strategies Allergies: Allergies: Allergies Coded Allergies Type Severity Reaction Last Updated Verified codeine Allergy Intermediate 06/14/19 Yes liraglutide Adverse Reaction Intermediate Nausea 06/14/19 Yes Physical Exam: PE: Constitutional: Well developed, well nourished, no acute distress, non-toxic appearance. [] HENT: Normocephalic, atraumatic, bilateral external ears normal, oropharynx moist, no oral exudates, nose normal. [] Eyes: PERRLA, EOMI, conjunctiva normal, no discharge. [] Neck: Normal range of motion, no tenderness, supple, no stridor. [] Cardiovascular: Regular rate and rhythm [] Lungs & Thorax: Bilateral breath sounds clear to auscultation [] Abdomen: Bowel sounds normal, soft, no tenderness. [] Skin: Warm, dry, no erythema, no rash. [] Extremities: No tenderness, no cyanosis, no clubbing, ROM intact, no edema. [] Neurologic: Alert and oriented X 3, no focal deficits noted. [] Current Patient Data: Vital Signs: Vital Signs Date Time Temp Pulse Resp B/P (MAP) Pulse Ox O2 Delivery O2 Flow Rate FiO2 03/02/20 22:05 97.7 96 18 184/89 (120) 97 Room Air 97.7 165/94 (117) EKG: EKG: [] Radiology/Procedures: Radiology/Procedures: [] Course & Med Decision Making: Course & Med Decision Making Pertinent Labs and Imaging studies reviewed. (See chart for details) [] Dragon Disclaimer: Dragon Disclaimer: This electronic medical record was generated, in whole or in part, using a voice recognition dictation system. Departure Departure Impression: Primary Impression: Hypertension Qualified Codes: I10 - Essential (primary) hypertension Disposition: HOME, SELF-CARE Condition: STABLE Referrals: FABRICIO CHUNG MD (PCP) Patient Instructions: Hypertension COREEN YEAGER Jr. DO March 02, 2020 22:35
[2020-03-02 22:40] LABS: BASO # 0.1 x10^3/uL (0.0-0.2); BASO % 1 % (0-3); EOS % 1 % (0-3); HEMATOCRIT 44.2 % (36.0-47.0); HEMOGLOBIN 14.4 g/dL (12.0-15.5); LYMPH # 2.8 x10^3/uL (1.0-4.8); LYMPH % 36 % (24-48); MEAN CORPUSCULAR HEMOGLOBIN 29 pg (25-35); MEAN CORPUSCULAR HGB CONC 33 g/dL (31-37); MEAN CORPUSCULAR VOLUME 88 fL (79-100); MONO # 0.5 x10^3/uL (0.0-1.1); MONO % 6 % (0-9); NEUT # 4.4 x10^3/uL (1.8-7.7); NEUT % 56 % (31-73); PLATELET COUNT 272 x10^3/uL (140-400); RED BLOOD COUNT 5.04 x10^6/uL (3.50-5.40); RED CELL DISTRIBUTION WIDTH 12.8 % (11.5-14.5); WHITE BLOOD COUNT 7.7 x10^3/uL (4.0-11.0)
[2020-03-02 22:50] LABS: CALCIUM 9.3 mg/dL (8.5-10.1); CREATININE 0.7 mg/dL (0.6-1.0); GFR 82.5; POTASSIUM 3.5 mmol/L (3.5-5.1)
[2020-03-02 22:56] LABS: ALBUMIN 4.5 g/dL (3.4-5.0); ALBUMIN/GLOBULIN RATIO 1.4 (1.0-1.7); MAGNESIUM 1.4 mg/dL (1.8-2.4); TOTAL BILIRUBIN 0.5 mg/dL (0.2-1.0); TOTAL PROTEIN 7.8 g/dL (6.4-8.2)
[2020-03-02 23:05] LABS: BILIRUBIN,URINE NEGATIVE (NEG); CLARITY,URINE CLEAR; COLOR,URINE YELLOW; NITRITE,URINE NEGATIVE (NEG); PROTEIN,URINE NEGATIVE (NEG-TRACE); UROBILINOGEN,URINE 0.2 mg/dL (0.2 mg/dL)
--- NOTE | 2020-03-02 23:10 | RAD ---
PORTABLE CHEST 1V Clinical Indication: Palpitations Comparison: AP chest March 29, 2019. Findings: The lung apices are incompletely imaged at the edge of the [id number]. Atherosclerotic thoracic aorta. Cardiac size is normal. Lungs are clear. There is no pneumothorax. No pleural effusion is appreciated. No acute bone abnormality. IMPRESSION: No acute cardiopulmonary process. Electronically signed by: Oseas Hampton MD (03/02/2020 11:07 PM) [id number]
[2020-03-02 23:14] LABS: BACTERIA,URINE FEW /HPF (0-FEW); RBC,URINE 0 /HPF (0-2); SQUAMOUS EPITHELIAL CELL,UR FEW /LPF
[2020-03-02] MEDS ORDERED: hydrALAZINE 20 MG/ML VIAL. IVP ONE (23:45)
[2020-03-02 23:57] VITALS: BP 135/75
--- NOTE | 2020-03-03 06:51 | EKG ---
[facility] [address] [place] [address] Test Date: 2020-03-02 Test Time: 22:48:03 Pat Name: MING RUSH Department: Room: Gender: F Pressroom Worker: : 1950 Requested By: COREEN YEAGER Order Number: [id number] Reading MD: Carlos Manuel Dawson Measurements Intervals [place] Rate: 81 P: 33 NV: 132 QRS: -7 QRSD: 78 T: 38 QT: 380 QTc: 442 Interpretive Statements SINUS RHYTHM LEFT ATRIAL ABNORMALITY LEFTWARD AXIS QRS(T) CONTOUR ABNORMALITY CONSISTENT WITH INFERIOR INFARCT PROBABLY OLD ABNORMAL ECG Electronically Signed On 03-03-2020 13:40:20 CDT by Carlos Manuel Dawson
== END 2020-03-03 00:19 | disposition home or self-care (01) ==
LOC: ER 22:02
DX: I10 Essential (primary) hypertension (principal); R00.2 Palpitations; E11.9 Type 2 diabetes mellitus without complications; K21.9 Gastro-esophageal reflux disease without esophagitis; Z88.5 Allergy status to narcotic agent; Z88.8 Allergy status to other drugs, medicaments and biological substances
CPT/HCPCS: 36415; 71045; 80053; 81001; 83735; 84443; 84484; 85025; 87086; 93005; 99285-25

== ENCOUNTER 2020-10-07 15:44 | Emergency (ER) | payer BC ==
[~2020-10-07] VITALS: Ht 154.9 cm; Wt 46.0 kg
[2020-10-07] MEDS ORDERED: MORPHINE SULFATE 10 MG/ML VIAL. IV ONE (16:15)
[2020-10-07] MEDS ORDERED: FAMOTIDINE 20 MG/2 ML VIAL IVP ONE (16:15)
[2020-10-07] MEDS ORDERED: ONDANSETRON PF 4 MG/2 ML VIAL. IVP ONE (16:15)
[2020-10-07 16:40] LABS: BASO # 0.1 x10^3/uL (0.0-0.2); BASO % 1 % (0-3); EOS # 0.1 x10^3/uL (0.0-0.7); EOS % 1 % (0-3); HEMATOCRIT 40.7 % (36.0-47.0); HEMOGLOBIN 13.6 g/dL (12.0-15.5); LYMPH % 35 % (24-48); MEAN CORPUSCULAR HEMOGLOBIN 30 pg (25-35); MEAN CORPUSCULAR HGB CONC 34 g/dL (31-37); MEAN CORPUSCULAR VOLUME 88 fL (79-100); MONO # 0.4 x10^3/uL (0.0-1.1); MONO % 7 % (0-9); NEUT # 3.3 x10^3/uL (1.8-7.7); NEUT % 56 % (31-73); PLATELET COUNT 226 x10^3/uL (140-400); RED CELL DISTRIBUTION WIDTH 12.8 % (11.5-14.5); WHITE BLOOD COUNT 5.8 x10^3/uL (4.0-11.0)
[2020-10-07 16:52] LABS: BARBITURATES NEG (NEG); BENZODIAZEPINES NEG (NEG); CANNABINOIDS NEG (NEG); COCAINE NEG (NEG); METHADONE NEG (NEG); OPIATES NEG (NEG); PHENCYCLIDINE NEG (NEG)
--- NOTE | 2020-10-07 16:52 | RAD ---
Exam: Chest one view INDICATION: Chest pain TECHNIQUE: Frontal view of the chest Comparisons: 03/02/2020 FINDINGS: The cardiomediastinal silhouette and pulmonary vessels are within normal limits. The lung and pleural spaces are clear. IMPRESSION: No acute cardiopulmonary process. Electronically signed by: Obinna Hunt MD (10/07/2020 4:49 PM) DIMPLE
[2020-10-07 16:59] LABS: AMPHETAMINE/METHAMPHETAMINE NEG (NEG)
[2020-10-07 17:06] LABS: CALCIUM 9.4 mg/dL (8.5-10.1); CREATININE 0.7 mg/dL (0.6-1.0); GFR 82.3; POTASSIUM 3.7 mmol/L (3.5-5.1)
--- NOTE | 2020-10-07 17:09 | EKG ---
[facility] [address] [place] [address] Test Date: 2020-10-07 Test Time: 15:53:32 Pat Name: MING RUSH Department: Room: Gender: F Renal Dialysis Rn: : 1950 Requested By: ANA SOSA Order Number: [id number] Reading MD: Measurements Intervals [place] Rate: 73 P: 42 NV: 142 QRS: 1 QRSD: 82 T: 33 QT: 382 QTc: 424 Interpretive Statements SINUS RHYTHM QRS(T) CONTOUR ABNORMALITY CONSIDER ANTEROLATERAL MYOCARDIAL DAMAGE CONSISTENT WITH INFERIOR INFARCT PROBABLY OLD ABNORMAL ECG RI6.01 No previous ECG available for comparison
[2020-10-07 17:12] LABS: ALBUMIN 4.3 g/dL (3.4-5.0); ALBUMIN/GLOBULIN RATIO 1.2 (1.0-1.7); MAGNESIUM 2.1 mg/dL (1.8-2.4); TOTAL BILIRUBIN 0.4 mg/dL (0.2-1.0); TOTAL PROTEIN 7.9 g/dL (6.4-8.2)
[2020-10-07 18:23] LABS: BILIRUBIN,URINE NEGATIVE (NEG); CLARITY,URINE CLEAR; COLOR,URINE YELLOW; NITRITE,URINE NEGATIVE (NEG); PROTEIN,URINE 30 mg/dL (NEG-TRACE); UROBILINOGEN,URINE 0.2 mg/dL (0.2 mg/dL)
[2020-10-07 18:32] LABS: RBC,URINE OCC /HPF (0-2); WBC,URINE OCC /HPF (0-4)
[2020-10-07 18:33] LABS: BACTERIA,URINE 0 /HPF (0-FEW)
--- NOTE | 2020-10-07 19:14 | PHYS DOC ---
Past Medical History Past Medical History: Diabetes-Type II, GERD, Hypertension (LORENZAANA Manning APRN) Past Surgical History: Other Additional Past Surgical Histo: Right arm (THAIAMANDEEPANA Manning APRN) Smoking Status: Never Smoker Alcohol Use: None Drug Use: None (SHEILAANA BARROW) General Adult EDM: Chief Complaint: CHEST PAIN-NON CARDIAC NATURE HPI: HPI: Patient is a 70 year old female with a history of diabetes type 2, hypertension, high cholesterol, who presents to the ED today complaining of a burning sensation in her chest region that began last night. Patient states she has history of acid reflux and is currently on Protonix. She states she has had an EGD last year and hence the reason she was started on Protonix. Denies anything specifically exacerbating or relieving her symptoms. She states occasionally the burning goes to her back. Denies any fever, cough, congestion. Denies any urgency, frequency or dysuria. (ANA SOSA APRN) Review of Systems: Review of Systems: Constitutional: Denies fever or chills. [] Eyes: Denies change in visual acuity. [] HENT: Denies nasal congestion or sore throat. [] Respiratory: Denies cough or shortness of breath. [] Cardiovascular: Reports burning sensation to the chest, denies edema GI: Denies abdominal pain, nausea, vomiting, bloody stools or diarrhea. [] : Denies dysuria. [] Musculoskeletal: Denies back pain or joint pain. [] Integument: Denies rash. [] Neurologic: Denies headache, focal weakness or sensory changes. [] Psychiatric: Denies depression or anxiety. [] (ANA SOSA APRN) Heart Score: HEART Score for Chest Pain: HEART Score for Chest Pain Response (Comments) Value History Slighlty/Non-Suspicious 0 ECG Normal 0 Age > 65 2 Risk Factors 1 or 2 Risk Factors 1 Troponin < Normal Limit 0 Total 3 Risk Factors: Risk Factors: DM, Current or recent (<one month) smoker, HTN, HLP, family history of CAD, obesity. Risk Scores: Score 0 - 3: 2.5% MACE over next 6 weeks - Discharge Home Score 4 - 6: 20.3% MACE over next 6 weeks - Admit for Clinical Observation Score 7 - 10: 72.7% MACE over next 6 weeks - Early Invasive Strategies (ANA SOSA APRN) Current Medications: Current Medications Medications (Trade) Dose Ordered Sig/Stewart Start Time Stop Time Status Last Admin Dose Admin Famotidine (Pepcid Vial) 20 mg 1X ONCE 10/07/20 16:15 10/07/20 16:17 DC 10/07/20 17:04 20 MG Morphine Sulfate (Morphine Sulfate) 5 mg 1X ONCE 10/07/20 16:15 10/07/20 16:17 DC 10/07/20 17:04 5 MG Ondansetron HCl (Zofran) 4 mg 1X ONCE 10/07/20 16:15 10/07/20 16:17 DC 10/07/20 17:03 4 MG (ANA SOSA APRN) Allergies: Allergies: Allergies Coded Allergies Type Severity Reaction Last Updated Verified codeine Allergy Intermediate 06/14/19 Yes liraglutide Adverse Reaction Intermediate Nausea 06/14/19 Yes (ANA SOSA APRN) Physical Exam: PE: Constitutional: Well developed, well nourished, no acute distress, non-toxic appearance. [] HENT: Normocephalic, atraumatic, bilateral external ears normal, oropharynx moist, no oral exudates, nose normal. [] Eyes: PERRLA, EOMI, conjunctiva normal, no discharge. [] Neck: Normal range of motion, no tenderness, supple, no stridor. [] Cardiovascular:Heart rate regular rhythm, no murmur [] Lungs & Thorax: Bilateral breath sounds clear to auscultation [] Abdomen: Bowel sounds normal, soft, no tenderness, no masses, no pulsatile masses. [] Skin: Warm, dry, no erythema, no rash. [] Back: No tenderness, no CVA tenderness. [] Extremities: No tenderness, no cyanosis, no clubbing, ROM intact, no edema. [] Neurologic: Alert and oriented X 3, normal motor function, normal sensory function, no focal deficits noted. [] Psychologic: Affect normal, judgement normal, mood normal. [] (ANA SOSA SPIKE MACHINE FEEDER) Current Patient Data: Labs: Laboratory Tests Test 10/07/20 16:20 10/07/20 16:30 White Blood Count 5.8 x10^3/uL (4.0-11.0) Red Blood Count 4.60 x10^6/uL (3.50-5.40) Hemoglobin 13.6 g/dL (12.0-15.5) Hematocrit 40.7 % (36.0-47.0) Mean Corpuscular Volume 88 fL (79-100) Mean Corpuscular Hemoglobin 30 pg (25-35) Mean Corpuscular Hemoglobin Concent 34 g/dL (31-37) Red Cell Distribution Width 12.8 % (11.5-14.5) Platelet Count 226 x10^3/uL (140-400) Neutrophils (%) (Auto) 56 % (31-73) Lymphocytes (%) (Auto) 35 % (24-48) Monocytes (%) (Auto) 7 % (0-9) Eosinophils (%) (Auto) 1 % (0-3) Basophils (%) (Auto) 1 % (0-3) Neutrophils # (Auto) 3.3 x10^3/uL (1.8-7.7) Lymphocytes # (Auto) 2.0 x10^3/uL (1.0-4.8) Monocytes # (Auto) 0.4 x10^3/uL (0.0-1.1) Eosinophils # (Auto) 0.1 x10^3/uL (0.0-0.7) Basophils # (Auto) 0.1 x10^3/uL (0.0-0.2) D-Dimer (Rosario) < 0.27 ug/mlFEU Sodium Level 141 mmol/L (136-145) Potassium Level 3.7 mmol/L (3.5-5.1) Chloride Level 105 mmol/L (98-107) Carbon Dioxide Level 28 mmol/L (21-32) Anion Gap 8 (6-14) Blood Urea Nitrogen 20 mg/dL (7-20) Creatinine 0.7 mg/dL (0.6-1.0) Estimated GFR (Cockcroft-Gault) 82.3 BUN/Creatinine Ratio 29 (6-20) H Glucose Level 156 mg/dL (70-99) H Calcium Level 9.4 mg/dL (8.5-10.1) Magnesium Level 2.1 mg/dL (1.8-2.4) Total Bilirubin 0.4 mg/dL (0.2-1.0) Aspartate Amino Transferase (AST) 15 U/L (15-37) Alanine Aminotransferase (ALT) 25 U/L (14-59) Alkaline Phosphatase 72 U/L (46-116) Troponin I Quantitative < 0.017 ng/mL (0.000-0.055) KP-Vlg-W-Type Natriuretic Peptide 141 pg/mL (0-124) H Total Protein 7.9 g/dL (6.4-8.2) Albumin 4.3 g/dL (3.4-5.0) Albumin/Globulin Ratio 1.2 (1.0-1.7) Lipase 144 U/L (73-393) Thyroid Stimulating Hormone (TSH) 3.635 uIU/mL (0.358-3.74) Urine Collection Type Void Urine Color Yellow Urine Clarity Clear Urine pH 8.0 (<5.0-8.0) Urine Specific [place] 1.020 (1.000-1.030) Urine Protein 30 mg/dL (NEG-TRACE) Urine Glucose (UA) 100 mg/dL (NEG) Urine Ketones (Stick) Negative mg/dL (NEG) Urine Blood Negative (NEG) Urine Nitrite Negative (NEG) Urine Bilirubin Negative (NEG) Urine Urobilinogen Dipstick 0.2 mg/dL (0.2 mg/dL) Urine Leukocyte Esterase Negative (NEG) Urine RBC Occ /HPF (0-2) Urine WBC Occ /HPF (0-4) Urine Squamous Epithelial Cells Few /LPF Urine Bacteria 0 /HPF (0-FEW) Urine Mucus Slight /LPF Urine Opiates Screen Neg (NEG) Urine Methadone Screen Neg (NEG) Urine Barbiturates Neg (NEG) Urine Phencyclidine Screen Neg (NEG) Urine Amphetamine/Methamphetamine Neg (NEG) Urine Benzodiazepines Screen Neg (NEG) Urine Cocaine Screen Neg (NEG) Urine Cannabinoids Screen Neg (NEG) Urine Ethyl Alcohol Neg (NEG) Laboratory Tests 10/07/20 16:20 Laboratory Tests 10/07/20 16:20 Vital Signs: Vital Signs Date Time Temp Pulse Resp B/P (MAP) Pulse Ox O2 Delivery O2 Flow Rate FiO2 10/07/20 15:48 98.4 68 18 156/67 (96) 98 Room Air 98.4 (ANA SOSA APRN) EKG: EK interpreted by Dr. Martin sinus rhythm HR 73 no STEMI[] (ANA SOSA APRN) Radiology/Procedures: Radiology/Procedures: []PROCEDURE: PORTABLE CHEST 1V Exam: Chest one view INDICATION: Chest pain TECHNIQUE: Frontal view of the chest Comparisons: 03/02/2020 FINDINGS: The cardiomediastinal silhouette and pulmonary vessels are within normal limits. The lung and pleural spaces are clear. IMPRESSION: No acute cardiopulmonary process. Electronically signed by: Obinna Payne MD (10/07/2020 4:49 PM) [facility] DICTATED and SIGNED BY: OBINNA PAYNE MD DATE: 10/07/20 [id number] (ANA SOSA APRN) Course & Med Decision Making: Course & Med Decision Making Pertinent Labs and Imaging studies reviewed. (See chart for details) This is a 70-year-old female patient with a history of acid reflux presenting today complaining of burning pain in her chest that began last night. EKG is negative, troponin is normal, chest x-ray is negative for any acute findings, CBC CMP lipase with no acute findings, UA is negative, drug screen is negative. Was given Pepcid in the ED, IV fluids, good relief of her symptoms. Discharge to home. Encouraged to continue taking Protonix and follow-up with her PCP as well as business process representative next week. (ANA SOSA APRN) Dragon Disclaimer: Dragon Disclaimer: This electronic medical record was generated, in whole or in part, using a voice recognition dictation system. (ANA SOSA APRN) Departure Departure Impression: Primary Impression: GERD (gastroesophageal reflux disease) Qualified Codes: K21.9 - Gastro-esophageal reflux disease without esophagitis Disposition: 01 [facility] HOME SELF CARE/HOMELESS Condition: STABLE Referrals: FABRICIO CHUNG MD (PCP) follow up next week Patient Instructions: Diet for Gastroesophageal Reflux Disease, Adult Additional Instructions: You were evaluated in the emergency room for acid reflux. Continue taking Protonix as prescribed by your doctor. Follow-up with your GI doctor and primary care doctor next week Attending Signature Attending Signature I have reviewed the PA/CASKET LINER's note and plan of care. I was available for consultation as needed during the patient's visit in the emergency department. I agree with the clinical impression, plan, and disposition. (FABRICIO MARTIN DO) ANA SOSA APRN Oct 07, 2020 19:14 FABRICIO MARTIN DO Oct 08, 2020 10:34
[2020-10-07] MEDS ORDERED: LIDO:MAALOX 1:1 20 ML SINGLE DOSE. SWSW ONE (19:15)
[2020-10-07] MEDS ORDERED: IOHEXOL 350 MG/ML 100 ML VIAL. IV ONE (19:45)
--- NOTE | 2020-10-07 20:26 | RAD ---
Exam: CT of chest with contrast INDICATION: Left-sided chest pain TECHNIQUE: Sequential axial images through the chest obtained following the administration of 90 mL o f Isovue-370 IV contrast. Sagittal and coronal reformatted images were reconstructed from the axial d anabelle and reviewed. 3-D reformatted images were reconstructed from the axial data and reviewed. Comparisons: Chest x-ray same day FINDINGS: Visualized portions of the thyroid are unremarkable. No enlargement is not lymph nodes. Heart size is normal. No pericardial effusion. Thoracic aorta has a normal course and caliber. Pulmon moise artery is not enlarged. No pulmonary embolus identified within the main, lobar or segmental Airways are patent. No consolidation or pneumothorax. 2 mm nodule in the right upper lobe series 3 im age 37 No Pleural effusion or thickening. Visualized upper abdomen is unremarkable. No suspicious osseous lesions or acute fractures. IMPRESSION: 1. No pulmonary embolus identified within the main, lobar or segmental pulmonary arteries. 2. A 2 mm nodule in the right upper lobe. In a low-risk patient no further follow-up imaging is shamika mmended. In a high-risk patient optional one-year follow-up CT can can BE performed. Exposure: One or more of the following in the visualized dose reduction techniques were utilized for this examination: 1. Automated exposure control 2. Adjustment of the MA and/or KV according to patient size 3. Use of iterative of reconstructive technique Electronically signed by: Obinna Hunt MD (10/07/2020 8:24 PM) [facility]
[2020-10-07 20:29] VITALS: BP 137/75
== END 2020-10-07 21:27 | disposition home or self-care (01) ==
LOC: ER 15:44
DX: K21.9 Gastro-esophageal reflux disease without esophagitis (principal); R07.89 Other chest pain; R20.8 Other disturbances of skin sensation; E11.9 Type 2 diabetes mellitus without complications; I10 Essential (primary) hypertension; Z98.890 Other specified postprocedural states; Z88.5 Allergy status to narcotic agent; Z88.8 Allergy status to other drugs, medicaments and biological substances
CPT/HCPCS: 36415; 71045; 71275; 80053; 80307; 81001; 83690; 83735; 83880; 84443; 84484; 85025; 85379; 93005; 96374; 96375; 99285; J2270; J2405; J3490; Q9967